=== PATIENT | male | born 1965 | race American Indian/Alaskan Native ===

== ENCOUNTER 2016-08-14 15:05 | Inpatient (IN) | payer MEDICAID, OTHER ==
[2016-08-14] MEDS ORDERED: Polyethylene Glycol 3350 Powder 17 GM Packet PO PRN (16:00)
[2016-08-14] MEDS ORDERED: Docusate Sodium 100 MG Cap PO PRN (16:00)
[2016-08-14] MEDS ORDERED: Acetaminophen 325 MG Tab PO PRN (16:00)
[2016-08-14] MEDS ORDERED: 50% Dextrose in Water 50 ML Syringe IVPUSH PRN (16:00)
[2016-08-14] MEDS ORDERED: Ondansetron 4 MG Tab.DIS PO PRN (16:00)
[2016-08-14] MEDS ORDERED: Sodium Chloride 0.65% Nasal Spray 45 ML Bottle NAS PRN (16:00)
--- NOTE | 2016-08-14 16:16 | PCM.HP ---
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 He had been dealing Right foot ulcer since February 2016 and was undergoing wound care. His ulcer became infected and started draining pus. He was seen by Aimee on who got a wound swab and also prescribed bactrim. Prior to that hospitalization, patient had fever, chills, night sweats and right leg pain for about 4 days prior to admission. Pus drainage from the foot worsened and patient was admitted for surgery on 08/06/16. He was started on IV vancomycin and IV zosyn. 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 Patient was then taken to the OR at that day and underwent right foot ulcer debridement and Incision and Drainage of Abscess area, partial right foot 3rd ray amputation (at the mid metatarsal shaft) and deep needle/trocar bone biopsy of the right 2nd and 4th metatarsal heads. Surgical findings were Necrotic bone and soft tissues of right foot. he was informed to have no weight bearing on the right foot today patient denies fever, chills, nausea, vomiting, any other symptoms except constipation. last blood work was done yesterday and shows, C. RP 2.3,ESR 95, BUN 8, creatinine 0.7, causing 8.7, albumin 3.20, potassium 4.1, sodium 139, AST 19, ALT 56, bilirubin total 2.3, GFR more than 60. chest x-ray from yesterday shows possible basal atelectasis - Related Data Allergies/Adverse Reactions: Allergies Allergy/AdvReac Type Severity Reaction Status Date / Time No Known Allergies Allergy Verified 08/14/16 16:04 Home Medications: Home Meds Aspirin 81 mg PO DAILY 11/25/14 [History] Hydrochlorothiazide 25 mg PO DAILY 11/25/14 [History] Lisinopril 40 mg PO DAILY 11/25/14 [History] Simvastatin [Zocor] 20 mg PO BEDTIME 11/25/14 [History] metFORMIN [Glucophage] 1,000 mg PO BID 11/25/14 [History] Amitriptyline [Elavil] 10 mg PO BEDTIME 03/30/16 [History] prednisoLONE Acetate [Pred Forte 1% Ophth Susp] 1 drop EYELF ASDIRECTED [History] Carvedilol 12.5 mg PO BID 08/14/16 [History] Past Medical History HEENT History: Reports: Cataract, Impaired vision Other HEENT History: supposed to wear glasses, but can't see far away with them Cardiovascular History: Reports: Arrhythmia, High cholesterol, Hypertension Other Cardiovascular History: has had heart pains, nothing is found Respiratory History: Reports: None Gastrointestinal History: Reports: None, Chronic constipation Genitourinary History: Reports: BPH Other Genitourinary History: has urgency, up at night to go to bathroom, then the stream is slow Musculoskeletal History: Reports: Back pain, chronic, Fracture, Other (see below ) Other Musculoskeletal History: RIGHT TIBIA; LUMBAR DEGENARATIVE DISC DISEASE; BULDGE OF LUMBAR DISC WITHOUT MYELOPATHY; LUMBAR RADICULPATHY Neurological History: Reports: Neuropathy, diabetic Psychiatric History: Reports: Depression, Mood swings Endocrine/Metabolic History: Reports: Diabetes, type II, Obesity/BMI 30+ Hematologic History: Reports: None Immunologic History: Reports: None Oncologic (Cancer) History: Reports: None Dermatologic History: Reports: Cellulitis, Other (see below) Other Dermatologic History: HX OF MRSA - Infectious Disease History Infectious Disease History: Reports: Mumps - Past Surgical History Head Surgeries/Procedures: Reports: None HEENT Surgical History: Reports: Cataract surgery, Tonsillectomy Cardiovascular Surgical History: Reports: None Respiratory Surgical History: Reports: None GI Surgical History: Reports: None Male Surgical History: Reports: None Endocrine Surgical History: Reports: None Neurological Surgical History: Reports: None Other Musculoskeletal Surgeries/Procedures:: knee surgury Oncologic Surgical History: Reports: None Dermatological Surgical History: Reports: None Social & Family History - Family History HEENT: Reports: None Respiratory: Reports: None GI: Reports: None : Reports: None Musculoskeletal: Reports: Arthritis Neurological: Reports: None Endocrine/Metabolic: Reports: Diabetes, type II Hematologic: Reports: None Immunologic: Reports: None Dermatologic: Reports: None - Tobacco Use Smoking Status *Q: Current Every Day Smoker Years of Tobacco use: 33 Packs/Tins Daily: 0.5 Second Hand Smoke Exposure: No - Caffeine Use Caffeine Use: Reports: None - Recreational Drug Use Recreational Drug Use: No Drug Use in Last 12 Months: No H&P Review of Systems - Review of Systems: Review Of Systems: See Below General: Reports: no symptoms HEENT: Reports: no symptoms Pulmonary: Reports: No Symptoms Cardiovascular: Reports: no symptoms Gastrointestinal: Reports: Constipation. Denies: Abdominal pain, Anorexia, Black stool, Bloody stool, Diarrhea, Decreased appetite, Difficulty swallowing, Distension, Hematochezia, Melena, Nausea, Vomiting Genitourinary: Reports: no symptoms Musculoskeletal: Reports: no symptoms Skin: Reports: no symptoms Psychiatric: Reports: no symptoms Neurological: Reports: No Symptoms Hematologic/Lymphatic: Reports: no symptoms Immunologic: Reports: no symptoms Exam - Exam Exam: See Below - Vital Signs Vital Signs: Last Vital Signs Temp 36.7 C 08/14/16 15:54 Pulse 71 08/14/16 15:54 Resp 20 08/14/16 15:54 BP 154/76 H 08/14/16 15:54 Pulse Ox 100 08/14/16 15:54 Weight: 125.736 kg - Exam General: alert, oriented, cooperative. No: mild distress, moderate distress, severe distress, sedated, lethargic, obtunded HEENT: Conjunctiva clear, EACs clear, EOMI, Hearing intact, Mucosa moist & pink , Nares patent, Normal nasal septum, Posterior pharynx clear, Pupils equal, Pupils reactive Neck: supple, trachea midline, full range of motion Lungs: Clear to auscultation, Normal respiratory effort. No: Decreased breath sounds, Crackles, Rales, Rhonchi, Rub, Stridor, Wheezing Cardiovascular: regular rate, regular rhythm Abdomen: normal bowel sounds, soft. No: organomegaly, peritoneal signs, distention, guarding, rigidity, rebound, tenderness, absent bowel sounds (Male) Exam: No hernia, Deferred Rectal (Males) Exam: Deferred Back Exam: normal inspection, full range of motion Extremities: edema (except appropriate postsurgical swelling in right foot), other (Right foot: vacc is in place. I don't appreciate drainage, fluctuation, induration, signs of infection). No: clubbing, cyanosis, calf tenderness Skin: warm, dry, intact Neurological: cranial nerves intact, reflexes equal bilateral Neuro Extensive - Mental Status: alert, oriented x3, normal mood/affect, normal cognition, memory intact Neuro Extensive - Motor, Sensory, Reflexes: CN II-XII intact, normal gait, normal reflexes Psychiatric: alert, normal affect, normal mood. No: suicidal ideation, homicidal ideation, hallucinations *Q Meaningful Use (ADM) - VTE *Q VTE Criteria *Q: - Stroke *Q Stroke Criteria *Q: - AMI *Q AMI Criteria *Q: Problem List Initiated/Reviewed/Updated: Yes Orders Last 24hrs: Active Orders 24 hr Category Date Time Status Patient Status [ADT] Routine ADT 08/14/16 16:00 Ordered Bedrest Bedside Commode [RC] ASDIRECTED Care 08/14/16 16:00 Ordered Blood Glucose Check, Bedside [RC] WITHMEALSANDBED Care 08/14/16 16:00 Ordered Communication Order [RC] PER UNIT ROUTINE Care 08/14/16 16:07 Ordered Communication Order [RC] PER UNIT ROUTINE Care 08/14/16 16:07 Ordered Diabetes Education [RC] Click To Edit Care 08/14/16 16:04 Ordered Height and Weight [RC] WEEKLY Care 08/14/16 16:02 Ordered Intake and Output [RC] ASDIRECTED Care 08/14/16 16:00 Ordered Notify Provider Laboratory Res [RC] ASDIRECTED Care 08/14/16 16:06 Ordered Oxygen Therapy [RC] PRN Care 08/14/16 16:00 Ordered Up to Chair [RC] ASDIRECTED Care 08/14/16 16:00 Ordered VTE/DVT Education [RC] PER UNIT ROUTINE Care 08/14/16 16:00 Ordered Vital Signs [RC] PER UNIT ROUTINE Care 08/14/16 16:00 Ordered OT Evaluation and Treatment [CONS] Routine Cons 08/14/16 16:00 Ordered PT Evaluation and Treatment [CONS] Routine Cons 08/14/16 16:00 Ordered Consistent Carbohydrate Diet [DIET] Diet 08/14/16 Breakfast Ordered Acetaminophen [Tylenol] Med 08/14/16 16:00 Ordered 650 mg PO Q4H PRN Acetaminophen/HYDROcodone [Clarita 325-10 MG] Med 08/14/16 16:00 Ordered 1 tab PO Q4H PRN Amitriptyline [Elavil] Med 08/14/16 21:00 Ordered 10 mg PO BEDTIME Aspirin Med 08/15/16 09:00 Ordered 81 mg PO DAILY Carvedilol [Carvedilol] Med 08/14/16 21:00 Ordered 12.5 mg PO BID Dextrose 50% in Water Med 08/14/16 16:00 Ordered 50 ml IVPUSH ONETIME PRN Docusate Sodium [Colace] Med 08/14/16 16:00 Ordered 100 mg PO BID PRN Enoxaparin [Lovenox] Med 08/15/16 09:00 Ordered 40 mg SUBCUT DAILY Hydrochlorothiazide Med 08/15/16 09:00 Ordered 25 mg PO DAILY Insulin Aspart [NovoLOG] Med 08/14/16 16:00 Ordered See Protocol SUBCUT ASDIRECTED Lisinopril [Lisinopril] Med 08/15/16 09:00 Ordered 40 mg PO DAILY Ondansetron [Zofran ODT] Med 08/14/16 16:00 Ordered 4 mg PO Q6H PRN Polyethylene Glycol 3350 [MiraLAX] Med 08/14/16 16:00 Ordered 17 gm PO DAILY PRN Simvastatin [Zocor] Med 08/14/16 21:00 Ordered 20 mg PO BEDTIME Sodium Chloride 0.65% [[place] Nasal [place]] Med 08/14/16 16:00 Ordered 1 ml MASON BID PRN Zolpidem [Ambien] Med 08/14/16 16:00 Ordered 5 mg PO BEDTIME PRN metFORMIN [Glucophage] Med 08/14/16 21:00 Ordered 1,000 mg PO BID Glucose Management Sub Q Reflex [OM.PC] Click To Edit Oth 08/14/16 16:00 Ordered May Take Own Home Medications [OM.PC] Routine Oth 08/14/16 16:06 Ordered Resuscitation Status Routine Resus Stat 08/14/16 16:00 Ordered Assessment/Plan Comment:: Right foot abscess and 3rd metatarsal head osteomyelitis. - S/p right foot ulcer debridement and Incision and Drainage of Abscess area, partial right foot 3rd ray amputation (at the mid metatarsal shaft) and deep needle/trocar bone biopsy of the right 2nd and 4th metatarsal heads. - Continue IV zosyn per infectious disease recommendation -continue to follow up with us Dr. Weaver from infectious disease -followup with podiatry -Tylenol and Clarita as needed for pain -No weightbearing on right foot -Consult physical therapy and special therapy possible atelectasis seen on chest x-ray from yesterday not symptomatic Incentive spirometer diabetes mellitus type 2 in obese Continue metformin sliding scale insulin essential benign hypertension resume his listener built, gargle, the chlorothiazide, aspirin History of hyperlipidemia Simvastatin chronic back pain with bilateral lumbar radiculopathy Continue his amitriptyline Tylenol and Clarita as needed patient is full code Lovenox for DVT prophylaxis
[2016-08-14] MEDS: Acetaminophen/HYDROcodone 325-10 MG Tab PO PRN (16:58)
[2016-08-14] MEDS: metFORMIN 500 MG Tab PO SCH (18:20)
[2016-08-14] MEDS: Carvedilol 6.25 MG Tab PO SCH (18:21)
[2016-08-14] MEDS: Insulin Aspart 100 Units/ML 3 ML Pen SUBCUT SCH ×2 (18:22→21:29)
[2016-08-14] MEDS: Piperacillin/Tazobactam 3.375 GM in Sodium Chloride 0.9% 100 ML IV SCH (18:42)
[2016-08-14] MEDS: Sodium Chloride 0.9% 10 ML Syringe FLUSH PRN (18:43)
[2016-08-14] MEDS: Simvastatin 10 MG Tab PO SCH (21:20)
[2016-08-14] MEDS: Amitriptyline 10 MG Tab PO SCH (21:21)
[2016-08-15] MEDS: Sodium Chloride 0.9% 10 ML Syringe FLUSH PRN (01:04)
[2016-08-15] MEDS: Piperacillin/Tazobactam 3.375 GM in Sodium Chloride 0.9% 100 ML IV SCH ×3 (01:20→18:16)
[2016-08-15] MEDS: Insulin Aspart 100 Units/ML 3 ML Pen SUBCUT SCH ×4 (07:59→23:05)
[2016-08-15] MEDS: Enoxaparin 40 MG/0.4 ML Syringe SUBCUT SCH (08:34)
[2016-08-15] MEDS: Carvedilol 6.25 MG Tab PO SCH ×2 (08:35→18:13)
[2016-08-15] MEDS: Aspirin 81 MG Tab.Chew PO SCH (08:35)
[2016-08-15] MEDS: Acetaminophen/HYDROcodone 325-10 MG Tab PO PRN ×3 (08:36→21:28)
[2016-08-15] MEDS: metFORMIN 500 MG Tab PO SCH ×2 (08:36→18:16)
[2016-08-15] MEDS: Lisinopril 20 MG Tab PO SCH (08:36)
[2016-08-15] MEDS: Hydrochlorothiazide 25 MG Tab PO SCH (08:36)
[2016-08-15] MEDS ORDERED: Alteplase 2 MG Vial IVPUSH ONE (16:15)
[2016-08-15] MEDS ORDERED: Water For Injection, Sterile 20 ML ONE (17:40)
[2016-08-15] MEDS: Amitriptyline 10 MG Tab PO SCH (21:28)
[2016-08-15] MEDS: Simvastatin 10 MG Tab PO SCH (21:28)
[2016-08-16] MEDS: Sodium Chloride 0.9% 10 ML Syringe FLUSH PRN (01:20)
[2016-08-16] MEDS: Piperacillin/Tazobactam 3.375 GM in Sodium Chloride 0.9% 100 ML IV SCH ×3 (01:20→17:19)
[2016-08-16] MEDS: Insulin Aspart 100 Units/ML 3 ML Pen SUBCUT SCH ×4 (08:17→20:49)
[2016-08-16] MEDS: Lisinopril 20 MG Tab PO SCH (09:24)
[2016-08-16] MEDS: Enoxaparin 40 MG/0.4 ML Syringe SUBCUT SCH (09:24)
[2016-08-16] MEDS: Aspirin 81 MG Tab.Chew PO SCH (09:25)
[2016-08-16] MEDS: Carvedilol 6.25 MG Tab PO SCH ×2 (09:25→17:19)
[2016-08-16] MEDS: metFORMIN 500 MG Tab PO SCH ×2 (09:25→17:18)
[2016-08-16] MEDS: Hydrochlorothiazide 25 MG Tab PO SCH (09:25)
[2016-08-16] MEDS: Acetaminophen/HYDROcodone 325-10 MG Tab PO PRN ×3 (12:39→20:54)
[2016-08-16] MEDS: Simvastatin 10 MG Tab PO SCH (20:43)
[2016-08-16] MEDS: Amitriptyline 10 MG Tab PO SCH (20:43)
[2016-08-17] MEDS: Piperacillin/Tazobactam 3.375 GM in Sodium Chloride 0.9% 100 ML IV SCH ×3 (01:08→17:57)
[2016-08-17] MEDS: Acetaminophen/HYDROcodone 325-10 MG Tab PO PRN ×3 (08:30→22:05)
[2016-08-17] MEDS: Lisinopril 20 MG Tab PO SCH (08:30)
[2016-08-17] MEDS: metFORMIN 500 MG Tab PO SCH ×2 (08:30→17:57)
[2016-08-17] MEDS: Hydrochlorothiazide 25 MG Tab PO SCH (08:31)
[2016-08-17] MEDS: Aspirin 81 MG Tab.Chew PO SCH (08:31)
[2016-08-17] MEDS: Insulin Aspart 100 Units/ML 3 ML Pen SUBCUT SCH ×4 (08:31→21:47)
[2016-08-17] MEDS: Enoxaparin 40 MG/0.4 ML Syringe SUBCUT SCH (08:31)
[2016-08-17] MEDS: Carvedilol 6.25 MG Tab PO SCH ×2 (08:31→17:57)
[2016-08-17] MEDS: Amitriptyline 10 MG Tab PO SCH (21:47)
[2016-08-17] MEDS: Simvastatin 10 MG Tab PO SCH (21:47)
[2016-08-18] MEDS: Piperacillin/Tazobactam 3.375 GM in Sodium Chloride 0.9% 100 ML IV SCH ×3 (01:13→17:40)
[2016-08-18] MEDS: Insulin Aspart 100 Units/ML 3 ML Pen SUBCUT SCH ×4 (08:01→21:43)
[2016-08-18] MEDS: Aspirin 81 MG Tab.Chew PO SCH (09:15)
[2016-08-18] MEDS: Carvedilol 6.25 MG Tab PO SCH ×2 (09:15→17:39)
[2016-08-18] MEDS: Hydrochlorothiazide 25 MG Tab PO SCH (09:16)
[2016-08-18] MEDS: metFORMIN 500 MG Tab PO SCH ×2 (09:16→17:39)
[2016-08-18] MEDS: Lisinopril 20 MG Tab PO SCH (09:16)
[2016-08-18] MEDS: Enoxaparin 40 MG/0.4 ML Syringe SUBCUT SCH (09:16)
[2016-08-18] MEDS: Acetaminophen/HYDROcodone 325-10 MG Tab PO PRN (09:17)
[2016-08-18] MEDS: Sodium Chloride 0.9% 10 ML Syringe FLUSH PRN (18:43)
[2016-08-18] MEDS: Amitriptyline 10 MG Tab PO SCH (21:43)
[2016-08-18] MEDS: Simvastatin 10 MG Tab PO SCH (21:43)
[2016-08-19] MEDS: Piperacillin/Tazobactam 3.375 GM in Sodium Chloride 0.9% 100 ML IV SCH ×3 (00:58→18:52)
[2016-08-19] MEDS: Insulin Aspart 100 Units/ML 3 ML Pen SUBCUT SCH ×4 (08:08→22:13)
[2016-08-19] MEDS: Carvedilol 6.25 MG Tab PO SCH ×2 (08:10→19:09)
[2016-08-19] MEDS: metFORMIN 500 MG Tab PO SCH ×2 (08:10→18:57)
[2016-08-19] MEDS: Hydrochlorothiazide 25 MG Tab PO SCH (09:06)
[2016-08-19] MEDS: Enoxaparin 40 MG/0.4 ML Syringe SUBCUT SCH (09:07)
[2016-08-19] MEDS: Aspirin 81 MG Tab.Chew PO SCH (09:07)
[2016-08-19] MEDS: Lisinopril 20 MG Tab PO SCH (09:07)
[2016-08-19] MEDS: Acetaminophen/HYDROcodone 325-10 MG Tab PO PRN ×2 (11:42→19:13)
[2016-08-19] MEDS: Sodium Chloride 0.9% 10 ML Syringe FLUSH PRN (18:52)
[2016-08-19] MEDS: Simvastatin 10 MG Tab PO SCH (22:14)
[2016-08-19] MEDS: Amitriptyline 10 MG Tab PO SCH (22:15)
[2016-08-20] MEDS: Piperacillin/Tazobactam 3.375 GM in Sodium Chloride 0.9% 100 ML IV SCH ×3 (01:50→17:28)
[2016-08-20] MEDS: Acetaminophen/HYDROcodone 325-10 MG Tab PO PRN ×2 (07:29→17:37)
[2016-08-20] MEDS: Insulin Aspart 100 Units/ML 3 ML Pen SUBCUT SCH ×4 (07:57→21:26)
[2016-08-20] MEDS: Hydrochlorothiazide 25 MG Tab PO SCH (09:54)
[2016-08-20] MEDS: metFORMIN 500 MG Tab PO SCH ×2 (09:55→17:37)
[2016-08-20] MEDS: Lisinopril 20 MG Tab PO SCH (09:55)
[2016-08-20] MEDS: Aspirin 81 MG Tab.Chew PO SCH (09:56)
[2016-08-20] MEDS: Carvedilol 6.25 MG Tab PO SCH ×2 (09:57→17:36)
[2016-08-20] MEDS: Enoxaparin 40 MG/0.4 ML Syringe SUBCUT SCH (09:58)
[2016-08-20] MEDS: Sodium Chloride 0.9% 10 ML Syringe FLUSH PRN ×2 (10:10→17:28)
[2016-08-20] MEDS ORDERED: Alteplase 2 MG Vial IVPUSH ONE (13:54)
[2016-08-20] MEDS: Simvastatin 10 MG Tab PO SCH (21:25)
[2016-08-20] MEDS: Amitriptyline 10 MG Tab PO SCH (21:25)
[2016-08-21] MEDS: Piperacillin/Tazobactam 3.375 GM in Sodium Chloride 0.9% 100 ML IV SCH ×3 (01:05→17:40)
[2016-08-21] MEDS: Sodium Chloride 0.9% 10 ML Syringe FLUSH PRN ×2 (01:06→21:15)
[2016-08-21] MEDS: Insulin Aspart 100 Units/ML 3 ML Pen SUBCUT SCH ×4 (06:17→21:45)
[2016-08-21] MEDS: Acetaminophen/HYDROcodone 325-10 MG Tab PO PRN ×2 (06:35→18:08)
[2016-08-21] MEDS: Enoxaparin 40 MG/0.4 ML Syringe SUBCUT SCH (08:59)
[2016-08-21] MEDS: Hydrochlorothiazide 25 MG Tab PO SCH (09:37)
[2016-08-21] MEDS: Lisinopril 20 MG Tab PO SCH (09:37)
[2016-08-21] MEDS: metFORMIN 500 MG Tab PO SCH ×2 (09:37→18:02)
[2016-08-21] MEDS: Aspirin 81 MG Tab.Chew PO SCH (09:37)
[2016-08-21] MEDS: Carvedilol 6.25 MG Tab PO SCH ×2 (09:37→18:02)
[2016-08-21] MEDS: Amitriptyline 10 MG Tab PO SCH (21:14)
[2016-08-21] MEDS: Simvastatin 10 MG Tab PO SCH (21:15)
[2016-08-22] MEDS: Piperacillin/Tazobactam 3.375 GM in Sodium Chloride 0.9% 100 ML IV SCH ×3 (01:17→18:07)
[2016-08-22] MEDS: Sodium Chloride 0.9% 10 ML Syringe FLUSH PRN ×3 (01:18→21:07)
[2016-08-22] MEDS: Insulin Aspart 100 Units/ML 3 ML Pen SUBCUT SCH ×4 (09:52→21:06)
[2016-08-22] MEDS: Aspirin 81 MG Tab.Chew PO SCH (09:52)
[2016-08-22] MEDS: Carvedilol 6.25 MG Tab PO SCH ×2 (09:53→17:58)
[2016-08-22] MEDS: Hydrochlorothiazide 25 MG Tab PO SCH (09:56)
[2016-08-22] MEDS: Enoxaparin 40 MG/0.4 ML Syringe SUBCUT SCH (09:57)
[2016-08-22] MEDS: metFORMIN 500 MG Tab PO SCH ×2 (09:57→17:58)
[2016-08-22] MEDS: Lisinopril 20 MG Tab PO SCH (09:57)
[2016-08-22] MEDS: Simvastatin 10 MG Tab PO SCH (21:05)
[2016-08-22] MEDS: Amitriptyline 10 MG Tab PO SCH (21:05)
[2016-08-23] MEDS: Piperacillin/Tazobactam 3.375 GM in Sodium Chloride 0.9% 100 ML IV SCH ×3 (01:04→17:33)
[2016-08-23] MEDS: Sodium Chloride 0.9% 10 ML Syringe FLUSH PRN ×3 (01:05→11:40)
[2016-08-23] MEDS: Insulin Aspart 100 Units/ML 3 ML Pen SUBCUT SCH ×4 (09:33→22:03)
[2016-08-23] MEDS: metFORMIN 500 MG Tab PO SCH ×2 (10:31→17:33)
[2016-08-23] MEDS: Carvedilol 6.25 MG Tab PO SCH ×2 (10:32→17:33)
[2016-08-23] MEDS: Aspirin 81 MG Tab.Chew PO SCH (10:32)
[2016-08-23] MEDS: Lisinopril 20 MG Tab PO SCH (10:32)
[2016-08-23] MEDS: Hydrochlorothiazide 25 MG Tab PO SCH (10:32)
[2016-08-23] MEDS: Enoxaparin 40 MG/0.4 ML Syringe SUBCUT SCH (10:33)
[2016-08-23] MEDS: Acetaminophen/HYDROcodone 325-10 MG Tab PO PRN ×2 (12:40→17:46)
[2016-08-23] MEDS: Simvastatin 10 MG Tab PO SCH (20:32)
[2016-08-23] MEDS: Amitriptyline 10 MG Tab PO SCH (20:33)
[2016-08-23] MEDS: Zolpidem 5 MG Tab PO PRN (21:41)
[2016-08-24] MEDS: Piperacillin/Tazobactam 3.375 GM in Sodium Chloride 0.9% 100 ML IV SCH ×3 (01:31→17:33)
[2016-08-24] MEDS: Insulin Aspart 100 Units/ML 3 ML Pen SUBCUT SCH ×4 (07:52→21:12)
[2016-08-24] MEDS: Carvedilol 6.25 MG Tab PO SCH ×2 (07:55→17:37)
[2016-08-24] MEDS: Lisinopril 20 MG Tab PO SCH ×2 (07:57→13:15)
[2016-08-24] MEDS: metFORMIN 500 MG Tab PO SCH ×2 (07:57→17:36)
[2016-08-24] MEDS: Aspirin 81 MG Tab.Chew PO SCH ×2 (07:57→13:14)
[2016-08-24] MEDS: Enoxaparin 40 MG/0.4 ML Syringe SUBCUT SCH (07:59)
[2016-08-24] MEDS: Hydrochlorothiazide 25 MG Tab PO SCH (08:04)
[2016-08-24] MEDS: Acetaminophen/HYDROcodone 325-10 MG Tab PO PRN ×2 (08:04→20:36)
[2016-08-24] MEDS: Simvastatin 10 MG Tab PO SCH (20:37)
[2016-08-24] MEDS: Amitriptyline 10 MG Tab PO SCH (20:38)
[2016-08-24] MEDS: Zolpidem 5 MG Tab PO PRN (22:22)
[2016-08-25] MEDS: Piperacillin/Tazobactam 3.375 GM in Sodium Chloride 0.9% 100 ML IV SCH ×3 (01:07→18:03)
[2016-08-25] MEDS: Acetaminophen/HYDROcodone 325-10 MG Tab PO PRN ×3 (07:13→22:15)
[2016-08-25] MEDS: Insulin Aspart 100 Units/ML 3 ML Pen SUBCUT SCH ×4 (10:28→22:03)
[2016-08-25] MEDS: Carvedilol 6.25 MG Tab PO SCH ×2 (10:40→17:26)
[2016-08-25] MEDS: metFORMIN 500 MG Tab PO SCH ×2 (10:41→17:26)
[2016-08-25] MEDS: Aspirin 81 MG Tab.Chew PO SCH (17:26)
[2016-08-25] MEDS: Lisinopril 20 MG Tab PO SCH (17:27)
[2016-08-25] MEDS: Hydrochlorothiazide 25 MG Tab PO SCH (17:27)
[2016-08-25] MEDS: Enoxaparin 40 MG/0.4 ML Syringe SUBCUT SCH (18:00)
[2016-08-25] MEDS: Sodium Chloride 0.9% 10 ML Syringe FLUSH PRN (18:01)
[2016-08-25] MEDS: Zolpidem 5 MG Tab PO PRN (22:01)
[2016-08-25] MEDS: Amitriptyline 10 MG Tab PO SCH (22:01)
[2016-08-25] MEDS: Simvastatin 10 MG Tab PO SCH (22:01)
[2016-08-26] MEDS: Sodium Chloride 0.9% 10 ML Syringe FLUSH PRN ×2 (00:49→01:31)
[2016-08-26] MEDS: Piperacillin/Tazobactam 3.375 GM in Sodium Chloride 0.9% 100 ML IV SCH ×3 (00:49→17:42)
[2016-08-26] MEDS: Insulin Aspart 100 Units/ML 3 ML Pen SUBCUT SCH ×4 (08:48→20:54)
[2016-08-26] MEDS: Enoxaparin 40 MG/0.4 ML Syringe SUBCUT SCH (08:49)
[2016-08-26] MEDS: Hydrochlorothiazide 25 MG Tab PO SCH (08:49)
[2016-08-26] MEDS: metFORMIN 500 MG Tab PO SCH ×2 (08:49→17:39)
[2016-08-26] MEDS: Aspirin 81 MG Tab.Chew PO SCH (08:50)
[2016-08-26] MEDS: Lisinopril 20 MG Tab PO SCH (08:50)
[2016-08-26] MEDS: Carvedilol 6.25 MG Tab PO SCH ×2 (08:50→17:38)
--- NOTE | 2016-08-26 10:43 | PN ---
DATE: 08/26/2016 SUBJECTIVE: Mr. Oswaldo Moeller is a 50-year-old male with history of diabetes mellitus type 2, hypertension, and dyslipidemia. The patient was transferred to [place] from [facility] for intravenous antibiotics. He was found to have right foot abscess and osteomyelitis of the third metatarsal, right foot. He was seen by Infectious Disease and started on intravenous antibiotics. Today, the patient have no new complaints. Denies significant pain. He has a wound VAC applied to the right foot. No fever, chills, or rigors. REVIEW OF SYSTEMS: Cardiac, respiratory, gastrointestinal, constitutional, and neurologic reviewed, no other pertinent findings except as noted above. OBJECTIVE: General: The patient is alert, oriented to place, time, and person. Head: Atraumatic and normocephalic. Ear, Nose, and Throat: Unremarkable. Chest: Clear to auscultation. CVS: Regular rate and rhythm. Abdomen: Soft and nontender. Extremities: He has a wound VAC applied to the right foot. ASSESSMENT: 1. Right foot abscess. The patient underwent drainage of abscess at [facility] in [place]. 2. Osteomyelitis of the right foot. The patient underwent right partial toe amputation (surgery). 3. Diabetes mellitus. He has been on oral hypoglycemic agent. 4. Dyslipidemia, on simvastatin. 5. Chronic low back pain and bilateral lumbar radiculopathy. PLAN: 1. Continue on intravenous antibiotics, Zosyn. 2. Monitor blood sugars. 3. Continue wound VAC. 4. The patient has appointment with Infectious Disease in 2 days. [facility] /[id number]
[2016-08-26] MEDS: Amitriptyline 10 MG Tab PO SCH (20:50)
[2016-08-26] MEDS: Zolpidem 5 MG Tab PO PRN (20:50)
[2016-08-26] MEDS: Simvastatin 10 MG Tab PO SCH (20:50)
[2016-08-27] MEDS: Piperacillin/Tazobactam 3.375 GM in Sodium Chloride 0.9% 100 ML IV SCH ×3 (00:52→18:27)
[2016-08-27] MEDS: Insulin Aspart 100 Units/ML 3 ML Pen SUBCUT SCH ×4 (08:24→22:10)
[2016-08-27] MEDS: Hydrochlorothiazide 25 MG Tab PO SCH (10:19)
[2016-08-27] MEDS: Enoxaparin 40 MG/0.4 ML Syringe SUBCUT SCH (10:20)
[2016-08-27] MEDS: Aspirin 81 MG Tab.Chew PO SCH (10:20)
[2016-08-27] MEDS: Lisinopril 20 MG Tab PO SCH (10:20)
[2016-08-27] MEDS: metFORMIN 500 MG Tab PO SCH ×2 (10:25→18:25)
[2016-08-27] MEDS: Carvedilol 6.25 MG Tab PO SCH ×2 (10:25→18:29)
[2016-08-27] MEDS: Simvastatin 10 MG Tab PO SCH (22:04)
[2016-08-27] MEDS: Amitriptyline 10 MG Tab PO SCH (22:04)
[2016-08-28] MEDS: Sodium Chloride 0.9% 10 ML Syringe FLUSH PRN ×4 (01:23→17:10)
[2016-08-28] MEDS: Piperacillin/Tazobactam 3.375 GM in Sodium Chloride 0.9% 100 ML IV SCH ×3 (01:24→17:09)
[2016-08-28] MEDS: Insulin Aspart 100 Units/ML 3 ML Pen SUBCUT SCH ×4 (08:20→21:42)
--- NOTE | 2016-08-28 08:51 | PN ---
DATE: 08/27/2016 Mr. Moeller is a 50-year-old gentleman, who is in swing bed. He had a diabetic foot infection and is status post amputation of the 3rd metatarsal ray. Today, there were multiple discussions held with him and among the staff. He does not want to stay for further treatment. He currently is receiving IV Zosyn 3 times a day and has a PICC line in place. The swing bed coordinator did speak with the nurse for Dr. Smalls at the [facility] at [place]. Mr. Moeller is scheduled to see Infectious Disease by telemedicine tomorrow and he will keep that appointment. If he does leave AMA, the plan is to discontinue the PICC line. The wound VAC will also have to be discontinued and arrangements will be made for him to have dressings done at the [facility]. We are not sure at this time what we will be doing regarding the IV antibiotics. If he does leave, we cannot be responsible for the PICC line and he will need to have a peripheral line placed if he comes in as an outpatient. One other possibility will be that Infectious Disease could change his treatment to oral antibiotics. His C-reactive protein is now normal but sed rate remains elevated at 70 mm/minute. Lab work was done today in advance of tomorrow's appointment with Infectious Disease including CBC, sed rate, creatinine with GFR, ALT and C-reactive protein. Results were sent to Infectious Disease. [facility] /[id number] [place]
[2016-08-28] MEDS: Lisinopril 20 MG Tab PO SCH (09:41)
[2016-08-28] MEDS: Hydrochlorothiazide 25 MG Tab PO SCH (09:41)
[2016-08-28] MEDS: Aspirin 81 MG Tab.Chew PO SCH (09:41)
[2016-08-28] MEDS: Carvedilol 6.25 MG Tab PO SCH ×2 (09:42→17:12)
[2016-08-28] MEDS: metFORMIN 500 MG Tab PO SCH ×2 (09:42→17:12)
[2016-08-28] MEDS: Enoxaparin 40 MG/0.4 ML Syringe SUBCUT SCH (09:43)
[2016-08-28] MEDS: Amitriptyline 10 MG Tab PO SCH (21:41)
[2016-08-28] MEDS: Simvastatin 10 MG Tab PO SCH (21:41)
[2016-08-28] MEDS: Zolpidem 5 MG Tab PO PRN (21:41)
[2016-08-29] MEDS: Piperacillin/Tazobactam 3.375 GM in Sodium Chloride 0.9% 100 ML IV SCH ×3 (01:20→17:26)
[2016-08-29] MEDS: Insulin Aspart 100 Units/ML 3 ML Pen SUBCUT SCH ×4 (08:10→20:44)
[2016-08-29] MEDS: Hydrochlorothiazide 25 MG Tab PO SCH (09:02)
[2016-08-29] MEDS: Aspirin 81 MG Tab.Chew PO SCH (09:02)
[2016-08-29] MEDS: Lisinopril 20 MG Tab PO SCH (09:02)
[2016-08-29] MEDS: Carvedilol 6.25 MG Tab PO SCH ×2 (09:03→17:28)
[2016-08-29] MEDS: Enoxaparin 40 MG/0.4 ML Syringe SUBCUT SCH (09:04)
[2016-08-29] MEDS: metFORMIN 500 MG Tab PO SCH ×2 (09:04→17:29)
[2016-08-29] MEDS: Sodium Chloride 0.9% 10 ML Syringe FLUSH PRN ×2 (09:05→17:26)
[2016-08-29] MEDS: Simvastatin 10 MG Tab PO SCH (20:45)
[2016-08-29] MEDS: Zolpidem 5 MG Tab PO PRN (20:45)
[2016-08-29] MEDS: Amitriptyline 10 MG Tab PO SCH (20:45)
[2016-08-30] MEDS: Piperacillin/Tazobactam 3.375 GM in Sodium Chloride 0.9% 100 ML IV SCH ×3 (01:03→17:43)
[2016-08-30] MEDS: Sodium Chloride 0.9% 10 ML Syringe FLUSH PRN ×3 (01:05→17:43)
[2016-08-30] MEDS: Insulin Aspart 100 Units/ML 3 ML Pen SUBCUT SCH ×4 (08:17→21:13)
[2016-08-30] MEDS: Enoxaparin 40 MG/0.4 ML Syringe SUBCUT SCH (08:18)
[2016-08-30] MEDS: Carvedilol 6.25 MG Tab PO SCH ×2 (08:19→17:32)
[2016-08-30] MEDS: Lisinopril 20 MG Tab PO SCH (08:19)
[2016-08-30] MEDS: Hydrochlorothiazide 25 MG Tab PO SCH (08:20)
[2016-08-30] MEDS: Aspirin 81 MG Tab.Chew PO SCH (08:20)
[2016-08-30] MEDS: metFORMIN 500 MG Tab PO SCH ×2 (08:20→17:31)
[2016-08-30] MEDS: Zolpidem 5 MG Tab PO PRN (20:06)
[2016-08-30] MEDS: Amitriptyline 10 MG Tab PO SCH (20:06)
[2016-08-30] MEDS: Simvastatin 10 MG Tab PO SCH (20:07)
[2016-08-31] MEDS: Piperacillin/Tazobactam 3.375 GM in Sodium Chloride 0.9% 100 ML IV SCH ×3 (01:39→17:34)
[2016-08-31] MEDS: Sodium Chloride 0.9% 10 ML Syringe FLUSH PRN (01:40)
[2016-08-31] MEDS: Insulin Aspart 100 Units/ML 3 ML Pen SUBCUT SCH ×4 (08:20→21:33)
[2016-08-31] MEDS: Carvedilol 6.25 MG Tab PO SCH ×2 (09:10→17:32)
[2016-08-31] MEDS: Enoxaparin 40 MG/0.4 ML Syringe SUBCUT SCH (09:10)
[2016-08-31] MEDS: Hydrochlorothiazide 25 MG Tab PO SCH (09:11)
[2016-08-31] MEDS: Aspirin 81 MG Tab.Chew PO SCH (09:11)
[2016-08-31] MEDS: metFORMIN 500 MG Tab PO SCH ×2 (09:11→17:32)
[2016-08-31] MEDS: Lisinopril 20 MG Tab PO SCH (09:11)
[2016-08-31] MEDS: Simvastatin 10 MG Tab PO SCH (21:27)
[2016-08-31] MEDS: Amitriptyline 10 MG Tab PO SCH (21:27)
[2016-08-31] MEDS: Zolpidem 5 MG Tab PO PRN (21:33)
[2016-09-01] MEDS: Piperacillin/Tazobactam 3.375 GM in Sodium Chloride 0.9% 100 ML IV SCH ×3 (00:37→18:07)
[2016-09-01] MEDS: Sodium Chloride 0.9% 10 ML Syringe FLUSH PRN ×2 (00:38→19:02)
[2016-09-01] MEDS: Carvedilol 6.25 MG Tab PO SCH ×2 (08:22→18:07)
[2016-09-01] MEDS: metFORMIN 500 MG Tab PO SCH ×2 (08:22→18:10)
[2016-09-01] MEDS: Aspirin 81 MG Tab.Chew PO SCH (08:22)
[2016-09-01] MEDS: Lisinopril 20 MG Tab PO SCH (08:22)
[2016-09-01] MEDS: Hydrochlorothiazide 25 MG Tab PO SCH (08:23)
[2016-09-01] MEDS: Enoxaparin 40 MG/0.4 ML Syringe SUBCUT SCH (08:23)
[2016-09-01] MEDS: Insulin Aspart 100 Units/ML 3 ML Pen SUBCUT SCH ×4 (08:23→20:52)
[2016-09-01] MEDS: Amitriptyline 10 MG Tab PO SCH (20:32)
[2016-09-01] MEDS: Simvastatin 10 MG Tab PO SCH (20:34)
[2016-09-01] MEDS: Zolpidem 5 MG Tab PO PRN (20:54)
[2016-09-02] MEDS: Piperacillin/Tazobactam 3.375 GM in Sodium Chloride 0.9% 100 ML IV SCH ×3 (00:56→17:46)
[2016-09-02] MEDS: Sodium Chloride 0.9% 10 ML Syringe FLUSH PRN ×3 (00:56→17:47)
[2016-09-02] MEDS: Lisinopril 20 MG Tab PO SCH (08:08)
[2016-09-02] MEDS: Aspirin 81 MG Tab.Chew PO SCH (08:08)
[2016-09-02] MEDS: Hydrochlorothiazide 25 MG Tab PO SCH (08:08)
[2016-09-02] MEDS: metFORMIN 500 MG Tab PO SCH ×2 (08:08→17:47)
[2016-09-02] MEDS: Insulin Aspart 100 Units/ML 3 ML Pen SUBCUT SCH ×4 (08:09→20:49)
[2016-09-02] MEDS: Carvedilol 6.25 MG Tab PO SCH ×2 (08:09→17:54)
[2016-09-02] MEDS: Enoxaparin 40 MG/0.4 ML Syringe SUBCUT SCH (08:10)
[2016-09-02] MEDS: Acetaminophen/HYDROcodone 325-10 MG Tab PO PRN (19:59)
[2016-09-02] MEDS: Zolpidem 5 MG Tab PO PRN (20:31)
[2016-09-02] MEDS: Simvastatin 10 MG Tab PO SCH (20:32)
[2016-09-02] MEDS: Amitriptyline 10 MG Tab PO SCH (20:32)
[2016-09-03] MEDS: Piperacillin/Tazobactam 3.375 GM in Sodium Chloride 0.9% 100 ML IV SCH ×3 (00:44→17:59)
[2016-09-03] MEDS: Aspirin 81 MG Tab.Chew PO SCH (08:17)
[2016-09-03] MEDS: Carvedilol 6.25 MG Tab PO SCH ×2 (08:17→17:55)
[2016-09-03] MEDS: Lisinopril 20 MG Tab PO SCH (08:17)
[2016-09-03] MEDS: Hydrochlorothiazide 25 MG Tab PO SCH (08:18)
[2016-09-03] MEDS: metFORMIN 500 MG Tab PO SCH ×2 (08:18→17:55)
[2016-09-03] MEDS: Enoxaparin 40 MG/0.4 ML Syringe SUBCUT SCH (08:20)
[2016-09-03] MEDS: Insulin Aspart 100 Units/ML 3 ML Pen SUBCUT SCH ×4 (08:25→21:32)
[2016-09-03] MEDS: Sodium Chloride 0.9% 10 ML Syringe FLUSH PRN (09:09)
--- NOTE | 2016-09-03 10:02 | PCM.DCSUM1 ---
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 He had been dealing Right foot ulcer since February 2016 and was undergoing wound care. His ulcer became infected and started draining pus. He was seen by Lo on who got a wound swab and also prescribed bactrim. Prior to that hospitalization, patient had fever, chills, night sweats and right leg pain for about 4 days prior to admission. Pus drainage from the foot worsened and patient was admitted for surgery on 08/06/16. He was started on IV vancomycin and IV zosyn. 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 Patient was then taken to the OR at that day and underwent right foot ulcer debridement and Incision and Drainage of Abscess area, partial right foot 3rd ray amputation (at the mid metatarsal shaft) and deep needle/trocar bone biopsy of the right 2nd and 4th metatarsal heads. Surgical findings were Necrotic bone and soft tissues of right foot. he was admitted to swing bed on08/14/16. he has been getting Zosyn every 8 hours and seen in infectious disease in [place]. he is on no weight bearing on the right foot. patient had reproducible right inner upper arm pain. It seems from his PICC line. No signs of infection of his PICC line are appreciated. on admission and upon discharge patient denies fever, chills, nausea, vomiting, any other symptoms except constipation which improved. admission labs: CRP 2.3,ESR 95, BUN 8, creatinine 0.7, causing 8.7, albumin 3.20, potassium 4.1, sodium 139, AST 19, ALT 56, bilirubin total 2.3, GFR more than 60. chest x-ray from yesterday shows possible basal atelectasis. today his CRP is 0.7. Hemoglobin 11.5. WBC 8.7. of 0.8. patient is having social issue at home so he was leaving the facility for long time without his wound VAC against our advice. He was also getting the dressings on his foot longer than supposed. he was aware of the right medical advice but he verbalized and demonstrated understanding his medical condition and the importance of following medical advice but he opted willingly to take care of of his family issue rather than being compliant with the medical advice. I saw and examined the patient today. He informed me that he will go to this appointment in [place] tomorrow morning and he will not come back to the facility. He said n he will discuss with his infectious disease specialist the options of home therapy and he was affirm that he will not come back to this facility (swing[facility]) because his social issue at home. I explained to him that it's important to follow medical advice and being compliant with his treatment for his infected foot. I explained to him that inappropriate treatment and being noncompliant with his treatment can cause the infection to spread to the blood and can cause . Patient verbalized understanding and wanted to take his own risk. for his diabetes he has been requiring 0-2 units of insulin before meals. his blood glucose for the last 48 hours ranges between 183 to 228, however he has not been in the facility enough to do comprehensive blood check and treatment. I prescribed him glipizide ER 2.5 mg daily. He was advised to check his blood sugar before each meal and see his private care provider in 3-5 days and take his blood glucose readings with him to the appointment. patient will be discharged tomorrow at 6:30 AM per his request. 33 minutes was spent on discharging the patient addendum: on 09/04/16: Patient history and physical exam did not change and he patient continued to make the same decision - Discharge Data Discharge Date: 09/04/16 Discharge Disposition: Home, Self-Care 01 Condition: Good - Discharge Diagnosis/Problem(s) (1) Right foot infection SNOMED Code(s): 246644691 ICD Code: L08.9 - LOCAL INFECTION OF THE SKIN AND SUBCUTANEOUS TISSUE, UNSP Status: Chronic (2) Status post right foot surgery SNOMED Code(s): 723204826, 65143558, 160599429 ICD Code: Z98.890 - OTHER SPECIFIED POSTPROCEDURAL STATES Status: Acute (3) Diabetes mellitus type 2 in obese SNOMED Code(s): 46759226 ICD Code: E11.9 - TYPE 2 DIABETES MELLITUS WITHOUT COMPLICATIONS; E66.9 - OBESITY, UNSPECIFIED Status: Chronic (4) Hyperlipidemia SNOMED Code(s): 85982826 ICD Code: E78.5 - HYPERLIPIDEMIA, UNSPECIFIED Status: Chronic (5) Chronic back pain SNOMED Code(s): 325354215 ICD Code: M54.9 - DORSALGIA, UNSPECIFIED; G89.29 - OTHER CHRONIC PAIN Status: Chronic - Patient Summary/Data Operative Procedure(s) Performed: Cataract extraction with intraocular lens implant and Malyugin ring, left eye Consults: Consultations 08/14/16 16:00 OT Evaluation and Treatment [CONS] Routine PT Evaluation and Treatment [CONS] Routine - Patient Instructions Diet: Heart Healthy Diet, Diabetic Diet Activity: As Tolerated (but no weight bearing on right foot) Driving: Do Not Drive Showering/Bathing: May Shower Notify Provider of: Fever, Swelling and Redness, Drainage - Discharge Plan Prescriptions/Med Rec: glipiZIDE [Glucotrol XL] 2.5 mg PO DAILY #30 tab.er Home Medications: Home Meds Aspirin 81 mg PO DAILY 11/25/14 [History] Hydrochlorothiazide 25 mg PO DAILY 11/25/14 [History] Lisinopril 40 mg PO DAILY 11/25/14 [History] Simvastatin [Zocor] 20 mg PO BEDTIME 11/25/14 [History] metFORMIN [Glucophage] 1,000 mg PO BID 11/25/14 [History] Amitriptyline [Elavil] 10 mg PO BEDTIME 03/30/16 [History] Carvedilol 12.5 mg PO BID 08/14/16 [History] Piperacillin/Tazobactam [Zosyn] 3.375 gm IV Q8H 08/14/16 [History] glipiZIDE [Glucotrol XL] 2.5 mg PO DAILY #30 tab.er 09/03/16 [Rx] Patient Handouts: Bone and Joint Infections, Adult, Wound Infection, Easy-to- Read, Glipizide Extended-release tablets - Review of Systems General: Reports: No Symptoms HEENT: Reports: no symptoms Pulmonary: Reports: no symptoms Cardiovascular: Reports: No Symptoms Gastrointestinal: Reports: No symptoms Genitourinary: Reports: no symptoms Musculoskeletal: Reports: foot pain. Denies: neck pain, hand pain, joint swelling Skin: Denies: cyanosis, jaundice, mottled, pallor, diaphoresis, dryness, bruising, pruritis, rash Neurological: Reports: No Symptoms Psychiatric: Reports: no symptoms - Patient Data Vitals - Most Recent: Last Vital Signs Temp 36.6 C 09/02/16 20:00 Pulse 65 09/03/16 08:17 Resp 18 09/02/16 20:00 BP 121/60 09/03/16 08:17 Pulse Ox 100 09/02/16 20:00 Weight - Most Recent: 123.434 kg I&O - Last 24 hours: Intake & Output 09/02/16 09/03/16 09/03/16 22:59 06:59 14:59 Intake Total 94 Balance 94 Lab Results - Last 24 hrs: Laboratory Results - last 24 hr 09/02/16 09/02/16 09/02/16 Range/Units 07:36 17:37 20:37 WBC (5.0-10.0) 10^3/uL RBC (4.6-6.2) 10^6/uL Hgb (14.0-18.0) g/dL Hct (40.0-54.0) % MCV (80-100) fL MCH (27.0-34.0) pg MCHC (33.0-35.0) g/dL Plt Count (150-450) 10^3/uL Neut % (Auto) (42.2-75.2) % Lymph % (Auto) (20.5-50.1) % [place] % (Auto) (2-8) % Eos % (Auto) (1.0-3.0) % Baso % (Auto) (0.0-1.0) % ESR (0-15) mm/hr Creatinine (0.6-1.3) mg/dL Est Cr Clr Drug Dosing mL/min Estimated GFR (MDRD) POC Glucose 183 H 228 H 208 H (70-105) mg/dl ALT (10-60) IU/L C-Reactive Protein (0.0-1.3) mg/dL 09/03/16 09/03/16 09/03/16 Range/Units 06:15 06:15 06:15 WBC 8.7 (5.0-10.0) 10^3/uL RBC 3.98 L (4.6-6.2) 10^6/uL Hgb 11.5 L (14.0-18.0) g/dL Hct 35.4 L (40.0-54.0) % MCV 88.9 (80-100) fL MCH 28.9 (27.0-34.0) pg MCHC 32.5 L (33.0-35.0) g/dL Plt Count 240 (150-450) 10^3/uL Neut % (Auto) 54.5 (42.2-75.2) % Lymph % (Auto) 25.5 (20.5-50.1) % [place] % (Auto) 12.7 H (2-8) % Eos % (Auto) 7.1 H (1.0-3.0) % Baso % (Auto) 0.2 (0.0-1.0) % ESR 69 H (0-15) mm/hr Creatinine 0.8 (0.6-1.3) mg/dL Est Cr Clr Drug Dosing 129.10 mL/min Estimated GFR (MDRD) > 60 POC Glucose (70-105) mg/dl ALT 17 (10-60) IU/L C-Reactive Protein 0.7 (0.0-1.3) mg/dL // Range/Units 07:38 WBC (5.0-10.0) 10^3/uL RBC (4.6-6.2) 10^6/uL Hgb (14.0-18.0) g/dL Hct (40.0-54.0) % MCV (80-100) fL MCH (27.0-34.0) pg MCHC (33.0-35.0) g/dL Plt Count (150-450) 10^3/uL Neut % (Auto) (42.2-75.2) % Lymph % (Auto) (20.5-50.1) % [place] % (Auto) (2-8) % Eos % (Auto) (1.0-3.0) % Baso % (Auto) (0.0-1.0) % ESR (0-15) mm/hr Creatinine (0.6-1.3) mg/dL Est Cr Clr Drug Dosing mL/min Estimated GFR (MDRD) POC Glucose 176 H (70-105) mg/dl ALT (10-60) IU/L C-Reactive Protein (0.0-1.3) mg/dL Med Orders - Current: Current Medications Acetaminophen (Tylenol) 650 mg PO Q4H PRN PRN Reason: Pain (Mild 1-3)/fever Last Admin: 08/23/16 10:30 Dose: 650 mg Acetaminophen/Hydrocodone Bitart ([place] 325-10 Mg) 1 tab PO Q4H PRN PRN Reason: Pain (moderate 4-6) Last Admin: 09/02/16 19:59 Dose: 1 tab Amitriptyline HCl (Elavil) 10 mg PO BEDTIME [facility] Last Admin: 09/02/16 20:32 Dose: 10 mg Aspirin (Aspirin) 81 mg PO DAILY [facility] Last Admin: 09/03/16 08:17 Dose: 81 mg Carvedilol (Coreg) 12.5 mg PO BIDMEALS [facility] Last Admin: 09/03/16 08:17 Dose: 12.5 mg Dextrose/Water (Dextrose 50% In Water) 50 ml IVPUSH ONETIME PRN PRN Reason: Hypoglycemia Docusate Sodium (Colace) 100 mg PO BID PRN PRN Reason: Constipation Last Admin: 08/23/16 10:48 Dose: 100 mg Enoxaparin Sodium (Lovenox) 40 mg SUBCUT DAILY [facility] Last Admin: 09/03/16 08:20 Dose: 40 mg Hydrochlorothiazide (Hydrochlorothiazide) 25 mg PO DAILY [facility] Last Admin: 09/03/16 08:18 Dose: 25 mg Piperacillin Sod/Tazobactam (Sod 3.375 gm/ Sodium Chloride) 100 mls @ 200 mls/ hr IV Q8H [facility] Last Admin: 09/03/16 08:28 Dose: 200 mls/hr Insulin Aspart (Novolog) 0 unit SUBCUT ACBED [facility] PRN Reason: Protocol Last Admin: 09/03/16 08:25 Dose: 1 units Lisinopril (Prinivil) 40 mg PO DAILY [facility] Last Admin: 09/03/16 08:17 Dose: 40 mg Metformin HCl (Glucophage) 1,000 mg PO BIDMEALS [facility] Last Admin: 09/03/16 08:18 Dose: 1,000 mg Ondansetron HCl (Zofran Odt) 4 mg PO Q6H PRN PRN Reason: nausea, able to take PO Polyethylene Glycol (Miralax) 17 gm PO DAILY PRN PRN Reason: Constipation Simvastatin (Zocor) 20 mg PO BEDTIME [facility] Last Admin: 09/02/16 20:32 Dose: 20 mg Sodium Chloride ([place] Nasal [place]) 0 ml [place] BID PRN PRN Reason: Nasal Congestion Sodium Chloride (Saline Flush) 10 ml FLUSH ASDIRECTED PRN PRN Reason: Keep Vein Open Last Admin: 09/03/16 09:09 Dose: 10 ml Zolpidem Tartrate (Ambien) 5 mg PO BEDTIME PRN PRN Reason: Sleep Last Admin: 09/02/16 20:31 Dose: 5 mg Discontinued Medications Alteplase, Recombinant (Cathflo Activase) 2 mg IVPUSH ONETIME ONE Stop: 08/15/16 16:16 Last Admin: 08/15/16 18:34 Dose: 2 mg Alteplase, Recombinant (Cathflo Activase) 2 mg IVPUSH ONETIME ONE Stop: 08/20/16 13:55 Last Admin: 08/20/16 14:43 Dose: 2 mg Sterile Water (Sterile Water For Injection) Confirm Administered Dose 20 mls @ as directed .ROUTE .STK-MED ONE Stop: 08/15/16 17:41 Last Admin: 08/15/16 17:30 Dose: 2.2 ml - Exam General: Reports: alert, oriented, cooperative, no acute distress. Denies: mild distress, moderate distress, severe distress, sedated, lethargic, obtunded HEENT: Reports: Pupils equal, Pupils reactive, EOMI, Mucous membr. moist/pink Neck: Reports: supple, trachea midline, no JVD Lungs: Reports: Clear to auscultation, Normal respiratory effort. Denies: Decreased breath sounds, Crackles, Rales, Rhonchi, Rub, Stridor, Wheezing Cardiovascular: Reports: Regular Rate, Regular Rhythm, No Murmurs. Denies: Gallops, Rubs Abdomen: Reports: bowel sounds present, soft, no tenderness, no distension. Denies: rigidity, rebound, guarding, tenderness, distension, abnormal bowel sounds, CVA tenderness, organomegaly (Male) Exam: No hernia, Deferred Rectal (Males) Exam: Deferred Back Exam: Reports: normal inspection, full range of motion. Denies: CVA tenderness (L), CVA tenderness (R) Extremities: Reports: no edema, normal pulses, no tenderness/swelling, no clubbing, no cyanosis, no calf tenderness, calf tenderness, other (Right foot: vacc is in place. I don't appreciate drainage, fluctuation, induration, signs of infection) Skin: Reports: warm, dry Wound/Incisions: Reports: healing well Neurological: Reports: no new focal deficit Psy/Mental Status: Reports: alert, normal affect, normal mood, other (normal thought process. coherent). Denies: labile mood, anxious, depressed, agitated, suicidal ideation, homicidal ideation, hallucinations, withdrawal symptoms *Q Meaningful Use (DIS) - VTE *Q VTE Criteria *Q: - Stroke *Q Stroke Criteria *Q: - AMI *Q AMI Criteria *Q:
[2016-09-03] MEDS: Simvastatin 10 MG Tab PO SCH (21:20)
[2016-09-03] MEDS: Amitriptyline 10 MG Tab PO SCH (21:20)
[2016-09-03] MEDS: Acetaminophen/HYDROcodone 325-10 MG Tab PO PRN (21:34)
[2016-09-03] MEDS: Zolpidem 5 MG Tab PO PRN (21:34)
[2016-09-04] MEDS: Sodium Chloride 0.9% 10 ML Syringe FLUSH PRN ×2 (00:55→01:57)
[2016-09-04] MEDS: Piperacillin/Tazobactam 3.375 GM in Sodium Chloride 0.9% 100 ML IV SCH (00:55)
[2016-09-04 06:41] VITALS: BP 138/83
[2016-09-04] MEDS: Aspirin 81 MG Tab.Chew PO SCH (07:11)
[2016-09-04] MEDS: metFORMIN 500 MG Tab PO SCH (07:11)
[2016-09-04] MEDS: Carvedilol 6.25 MG Tab PO SCH (07:12)
[2016-09-04] MEDS: Lisinopril 20 MG Tab PO SCH (07:12)
[2016-09-04] MEDS: Hydrochlorothiazide 25 MG Tab PO SCH (07:13)
[2016-09-04] MEDS: Insulin Aspart 100 Units/ML 3 ML Pen SUBCUT SCH (07:14)
== END 2016-09-04 07:35 | disposition home or self-care (01) | DRG 949 ==
LOC: DL.MS 15:28 → EEVIPCON 15:28
PROVIDERS: ADMIT Family Medicine; ATTEND Family Medicine
DX: Z48.817 Encounter for surgical aftercare following surgery on the skin and subcutaneous tissue (principal); M86.8X7 Other osteomyelitis, ankle and foot; E11.69 Type 2 diabetes mellitus with other specified complication; E78.5 Hyperlipidemia, unspecified; I10 Essential (primary) hypertension; E66.9 Obesity, unspecified; Z79.84 Long term (current) use of oral hypoglycemic drugs; E11.40 Type 2 diabetes mellitus with diabetic neuropathy, unspecified; N40.0 Benign prostatic hyperplasia without lower urinary tract symptoms; Z86.14 Personal history of Methicillin resistant Staphylococcus aureus infection; Z83.3 Family history of diabetes mellitus; F17.210 Nicotine dependence, cigarettes, uncomplicated; Z89.429 Acquired absence of other toe(s), unspecified side; M54.16 Radiculopathy, lumbar region; Z79.4 Long term (current) use of insulin
CPT/HCPCS: 36415; 82565; 82962; 84460; 85025; 85027; 85651; 86140; 97161-GP; 97165-GO; A9270-GY; J1650; J1815-GY; J2543; J2997; J7050

== ENCOUNTER 2018-01-09 16:35 | Emergency (ER) | payer MEDICAID, OTHER ==
[2018-01-09] MEDS ORDERED: Sodium Chloride 0.9% 1,000 ML IV ONE (19:15)
[2018-01-09] MEDS ORDERED: Morphine 2 MG/ML Syringe IVPUSH ONE (19:15)
[2018-01-09] MEDS ORDERED: Ondansetron 4 MG/2 ML SDV IV ONE (19:15)
[2018-01-09 19:55] LABS: CHLORIDE,CL 106 mmol/L (101-111); SODIUM,NA 138 mmol/L (135-145)
--- NOTE | 2018-01-09 20:25 | EDM.PDOC ---
ED HPI GENERAL MEDICAL PROBLEM - General Chief Complaint: Abdominal Pain Stated Complaint: STOMACH PAIN [id number] Time Seen by Provider: 01/09/18 19:00 Source of Information: Reports: Patient History Limitations: Reports: No Limitations - History of Present Illness INITIAL COMMENTS - FREE TEXT/NARRATIVE: C/O right lower abdominal pain intermittent past 3 weeks, more constant past 2 days. More severe with cramping. Diarrhea onset yesterday. Watery no blood> 5 times today. Able to tolerate liquids but anything solid "goes right through". Emesis yesterday, none today, Chills [employer]. No known fever. Daughter reprts several family members diarrhea past week also. patient On antibiotics for foot ulcer at initial onset of pain sx. Recently started on 2 antibiotics on Wednesday for Recurrent diabetic ulcer to right fore foot. RLQ Pain Score (Numeric/FACES): 8 - Related Data Allergies Allergy/AdvReac Type Severity Reaction Status Date / Time No Known Allergies Allergy Verified 01/09/18 17:26 Home Meds: Home Meds Aspirin 81 mg PO DAILY 11/25/14 [History] Hydrochlorothiazide 25 mg PO DAILY 11/25/14 [History] Lisinopril 40 mg PO DAILY 11/25/14 [History] Simvastatin [Zocor] 20 mg PO BEDTIME 11/25/14 [History] metFORMIN [Glucophage] 1,000 mg PO BID 11/25/14 [History] Amitriptyline [Elavil] 10 mg PO BEDTIME 03/30/16 [History] Carvedilol 12.5 mg PO BID 08/14/16 [History] glipiZIDE [Glucotrol XL] 2.5 mg PO DAILY #30 tab.er 09/03/16 [Rx] Past Medical History HEENT History: Reports: Cataract, Impaired Vision Other HEENT History: supposed to wear glasses, but can't see far away with them Cardiovascular History: Reports: Arrhythmia, High Cholesterol, Hypertension Other Cardiovascular History: has had heart pains, nothing is found Respiratory History: Reports: None Gastrointestinal History: Reports: None, Chronic Constipation Other Gastrointestinal History: lactose intolerance Genitourinary History: Reports: BPH Other Genitourinary History: has urgency, up at night to go to bathroom, then the stream is slow Musculoskeletal History: Reports: Back Pain, Chronic, Fracture, Other (See Below ) Other Musculoskeletal History: RIGHT TIBIA; LUMBAR DEGENARATIVE DISC DISEASE; BULDGE OF LUMBAR DISC WITHOUT MYELOPATHY; LUMBAR RADICULPATHY Neurological History: Reports: Neuropathy, Diabetic Psychiatric History: Reports: Depression, Mood Swings Endocrine/Metabolic History: Reports: Diabetes, Type II, Obesity/BMI 30+ Hematologic History: Reports: None Immunologic History: Reports: None Oncologic (Cancer) History: Reports: None Dermatologic History: Reports: Cellulitis, Other (See Below) Other Dermatologic History: HX OF MRSA - Infectious Disease History Infectious Disease History: Reports: Mumps - Past Surgical History Head Surgeries/Procedures: Reports: None HEENT Surgical History: Reports: Cataract Surgery, Tonsillectomy Respiratory Surgical History: Reports: None Male Surgical History: Reports: None Oncologic Surgical History: Reports: None Social & Family History - Family History HEENT: Reports: None Cardiac: Reports: None Respiratory: Reports: None GI: Reports: None : Reports: None OBGYN: Reports: None Musculoskeletal: Reports: Arthritis Neurological: Reports: CVA Psychiatric: Reports: None Endocrine/Metabolic: Reports: Diabetes, type II Hematologic: Reports: None Immunologic: Reports: None Dermatologic: Reports: None Oncologic: Reports: Other (See Below) Other Oncologic Family History: Grandpa had unknown type of cancer - Tobacco Use Smoking Status *Q: Current Every Day Smoker Years of Tobacco use: 30 Packs/Tins Daily: 0.5 - Caffeine Use Caffeine Use: Reports: Coffee - Recreational Drug Use Recreational Drug Use: No ED ROS GENERAL - Review of Systems Review Of Systems: See Below Constitutional: Reports: Chills HEENT: Reports: No Symptoms Respiratory: Reports: No Symptoms Cardiovascular: Reports: No Symptoms GI/Abdominal: Reports: Abdominal Pain, Anorexia, Diarrhea, Decreased Appetite, Nausea (resolved). Denies: Constipation, Melena, Vomiting : Reports: No Symptoms Musculoskeletal: Reports: No Symptoms Skin: Reports: No Symptoms Neurological: Reports: No Symptoms ED EXAM, GI/ABD - Physical Exam Exam: See Below Exam Limited By: No Limitations General Appearance: Alert, Mild Distress Eyes: Bilateral: Normal Appearance Ears: Normal External Exam Nose: Normal Inspection Throat/Mouth: Normal Inspection, Normal Lips, Normal Oropharynx Head: Atraumatic, Normocephalic Neck: Normal Inspection Respiratory/Chest: No Respiratory Distress, Lungs Clear, Normal Breath Sounds Cardiovascular: Normal Peripheral Pulses, Regular Rate, Rhythm GI/Abdominal Exam: Soft, No Distention, Tender (lwer abdomen right greater than left, increased pain RLQ with movement), Abnormal Bowel Sounds (hyperactive). No: Distended, Guarding (Male) Exam: No Hernia Back Exam: Normal Inspection, Full Range of Motion Extremities: Normal Inspection, Normal Range of Motion Neurological: Alert, Oriented, Normal Cognition, Normal Reflexes Psychiatric: Normal Affect, Normal Mood Skin Exam: Warm, Dry, Intact, Normal Color Course - Vital Signs Last Recorded V/S: Last Vital Signs Temp 98.2 F 01/09/18 22:52 Pulse 76 01/09/18 22:52 Resp 18 01/09/18 22:52 BP 129/75 01/09/18 22:52 Pulse Ox 99 01/09/18 22:52 - Orders/Labs/Meds Orders: Active Orders 24 hr Category Date Time Status Blood Glucose Check, Bedside [RC] ONETIME Care 01/09/18 19:15 Active C DIFFICILE TOXIN BY PCR [MREF] Stat Lab 01/09/18 22:48 Ordered CULTURE BLOOD [BC] Stat Lab 01/09/18 19:27 Received CULTURE BLOOD [BC] Stat Lab 01/09/18 19:47 Received CULTURE STOOL [RM] Stat Lab 01/09/18 22:45 Received SHIGA TOXIN 1 & 2 [MREF] Stat Lab 01/09/18 22:45 Received Blood Culture x2 Reflex Set [OM.PC] Stat Oth 01/09/18 19:15 Ordered Labs: Laboratory Tests 01/09/18 01/09/18 01/09/18 Range/Units 19:26 19:27 19:27 WBC 12.6 H (5.0-10.0) 10^3/uL RBC 4.68 (4.6-6.2) 10^6/uL Hgb 13.6 L D (14.0-18.0) g/dL Hct 40.8 (40.0-54.0) % MCV 87.2 (80-100) fL MCH 29.1 (27.0-34.0) pg MCHC 33.3 (33.0-35.0) g/dL Plt Count 212 (150-450) 10^3/uL Neut % (Auto) 68.8 (42.2-75.2) % Lymph % (Auto) 15.3 L (20.5-50.1) % [place] % (Auto) 12.5 H (2-8) % Eos % (Auto) 3.2 H (1.0-3.0) % Baso % (Auto) 0.2 (0.0-1.0) % Sodium 138 (135-145) mmol/L Potassium 4.0 (3.6-5.0) mmol/L Chloride 106 (101-111) mmol/L Carbon Dioxide 22.0 (21.0-31.0) mmol/L Anion Gap 14.0 BUN 14 (7-18) mg/dL Creatinine 1.1 (0.6-1.3) mg/dL Est Cr Clr Drug Dosing 91.76 mL/min Estimated GFR (MDRD) > 60 BUN/Creatinine Ratio 12.72 Glucose 150 H (74-105) mg/dL POC Glucose 153 H (70-105) mg/dl Lactic Acid (0.5-2.2) mmol/L Calcium 8.5 (8.4-10.2) mg/dl Total Bilirubin 0.7 (0.2-1.0) mg/dL AST 18 (10-42) IU/L ALT 12 (10-60) IU/L Alkaline Phosphatase 66 (42-121) IU/L Total Protein 6.7 (6.7-8.2) g/dl Albumin 3.3 (3.2-5.5) g/dl Globulin 3.4 Albumin/Globulin Ratio 0.97 Amylase 36 (28-100) U/L Lipase 23 (22-51) U/L /05/17 Range/Units 19:27 WBC (5.0-10.0) 10^3/uL RBC (4.6-6.2) 10^6/uL Hgb (14.0-18.0) g/dL Hct (40.0-54.0) % MCV (80-100) fL MCH (27.0-34.0) pg MCHC (33.0-35.0) g/dL Plt Count (150-450) 10^3/uL Neut % (Auto) (42.2-75.2) % Lymph % (Auto) (20.5-50.1) % [place] % (Auto) (2-8) % Eos % (Auto) (1.0-3.0) % Baso % (Auto) (0.0-1.0) % Sodium (135-145) mmol/L Potassium (3.6-5.0) mmol/L Chloride (101-111) mmol/L Carbon Dioxide (21.0-31.0) mmol/L Anion Gap BUN (7-18) mg/dL Creatinine (0.6-1.3) mg/dL Est Cr Clr Drug Dosing mL/min Estimated GFR (MDRD) BUN/Creatinine Ratio Glucose (74-105) mg/dL POC Glucose (70-105) mg/dl Lactic Acid 1.6 (0.5-2.2) mmol/L Calcium (8.4-10.2) mg/dl Total Bilirubin (0.2-1.0) mg/dL AST (10-42) IU/L ALT (10-60) IU/L Alkaline Phosphatase (42-121) IU/L Total Protein (6.7-8.2) g/dl Albumin (3.2-5.5) g/dl Globulin Albumin/Globulin Ratio Amylase (28-100) U/L Lipase (22-51) U/L Meds: Medications Discontinued Medications Generic Name Dose Route Start Last Admin Trade Name Freq PRN Reason Stop Dose Admin Sodium Chloride 1,000 mls @ 999 mls/hr 01/09/18 19:15 01/09/18 19:26 Normal Saline IV 01/09/18 20:15 999 mls/hr .BOLUS ONE Administration Morphine Sulfate 2 mg 01/09/18 19:15 01/09/18 19:27 Morphine IVPUSH 01/09/18 19:16 2 mg ONETIME ONE Administration Ondansetron HCl 4 mg 01/09/18 19:15 01/09/18 19:27 Zofran IV 01/09/18 19:16 4 mg ONETIME ONE Administration Departure - Departure Time of Disposition: 22:44 Disposition: Home, Self-Care 01 Condition: Good Clinical Impression: Diarrhea, Ileitis Diabetic foot ulcer Qualifiers: Diabetic foot ulcer location: midfoot Diabetes mellitus type: type 2 Laterality : right Non-pressure ulcer stage: limited to breakdown of skin Qualified Code(s) : E11.621 - Type 2 diabetes mellitus with foot ulcer - Discharge Information *PRESCRIPTION DRUG MONITORING PROGRAM REVIEWED*: No Instructions: Clostridium Difficile Infection Referrals: PCP,None [Ordering Only Provider] - Forms: ED Department Discharge Additional Instructions: Follow up with Primary care this week increase fluid intake monitor blood sugars vancomycin 125mg one 4 times daily x 10 days good hand washing follow up symptoms worsen, dizzy lightheaded fever, worsening pain or blood in stool - My Orders Last 24 Hours: My Active Orders 01/09/18 19:15 Blood Glucose Check, Bedside [RC] ONETIME Blood Culture x2 Reflex Set [OM.PC] Stat 01/09/18 19:27 CULTURE BLOOD [BC] Stat 01/09/18 19:47 CULTURE BLOOD [BC] Stat 01/09/18 22:45 CULTURE STOOL [RM] Stat SHIGA TOXIN 1 & 2 [MREF] Stat 01/09/18 22:48 C DIFFICILE TOXIN BY PCR [MREF] Stat - Assessment/Plan Last 24 Hours: My Active Orders 01/09/18 19:15 Blood Glucose Check, Bedside [RC] ONETIME Blood Culture x2 Reflex Set [OM.PC] Stat 01/09/18 19:27 CULTURE BLOOD [BC] Stat 01/09/18 19:47 CULTURE BLOOD [BC] Stat 01/09/18 22:45 CULTURE STOOL [RM] Stat SHIGA TOXIN 1 & 2 [MREF] Stat 01/09/18 22:48 C DIFFICILE TOXIN BY PCR [MREF] Stat
[2018-01-09 22:57] VITALS: BP 129/75
== END 2018-01-09 22:55 | disposition home or self-care (01) ==
LOC: DL.ED 16:35
DX: K52.9 Noninfective gastroenteritis and colitis, unspecified (principal); E11.621 Type 2 diabetes mellitus with foot ulcer; I10 Essential (primary) hypertension; E78.00 Pure hypercholesterolemia, unspecified; F17.210 Nicotine dependence, cigarettes, uncomplicated; Z79.82 Long term (current) use of aspirin; Z79.899 Other long term (current) drug therapy; Z79.84 Long term (current) use of oral hypoglycemic drugs
CPT/HCPCS: 36415; 74176; 80053; 82150; 82962; 83605; 83690; 85025; 87040; 87045; 87493; 87899; 96361; 96374; 96375; 99283; 99284; J2270; J2405; J7030; 87046

== ENCOUNTER 2021-03-25 15:38 | Emergency (ER) | payer MEDICAID ==
[2021-03-25 15:44] VITALS: BP 118/82; PULSE 87
--- NOTE | 2021-03-25 15:50 | EDM.PDOC ---
ED HPI GENERAL MEDICAL PROBLEM - General Chief Complaint: Chest Pain Stated Complaint: AMBULANCE Time Seen by Provider: 03/25/21 15:35 Source of Information: Reports: Patient History Limitations: Reports: No Limitations - History of Present Illness INITIAL COMMENTS - FREE TEXT/NARRATIVE: This 55 yo male patient was brought to the ED by [facility] due to upper abdominal or lower chest pain. The patient reports his symptoms started today. The patient was in the clinic this morning, but did not see a provider. The EMS crew gave the patient aspirin and 2 doses of nitro. The patient reports his symptoms have significantly improved since the nitro, but the patient reports he still has some discomfort in his lower chest/upper abdomen. The patient reports he did have peppered steak soup for lunch today. The patient denies any history of abdominal surgeries. Onset: Today Duration: Constant Location: Reports: Chest, Abdomen Quality: Reports: Ache Severity: Moderate Improves with: Reports: Other Worsens with: Reports: None Associated Symptoms: Reports: Chest Pain Treatments [employer]: Reports: Aspirin, Nitroglycerin Chest Pain Score (Numeric/FACES): 5 - Related Data Allergies Allergy/AdvReac Type Severity Reaction Status Date / Time No Known Allergies Allergy Verified 01/09/18 17:26 Home Meds: Home Meds Aspirin 81 mg PO DAILY 11/25/14 [History] Hydrochlorothiazide 25 mg PO DAILY 11/25/14 [History] Lisinopril 40 mg PO DAILY 11/25/14 [History] Simvastatin [Zocor] 20 mg PO BEDTIME 11/25/14 [History] metFORMIN [Glucophage] 1,000 mg PO BID 11/25/14 [History] Amitriptyline [Elavil] 10 mg PO BEDTIME 03/30/16 [History] carvediloL [Carvedilol] 12.5 mg PO BID 08/14/16 [History] glipiZIDE [Glucotrol XL] 2.5 mg PO DAILY #30 tab.er 09/03/16 [Rx] Past Medical History HEENT History: Reports: Cataract, Impaired Vision Other HEENT History: supposed to wear glasses, but can't see far away with them Cardiovascular History: Reports: Arrhythmia, High Cholesterol, Hypertension Other Cardiovascular History: has had heart pains, nothing is found Respiratory History: Reports: None Gastrointestinal History: Reports: None, Chronic Constipation Other Gastrointestinal History: lactose intolerance Genitourinary History: Reports: BPH Other Genitourinary History: has urgency, up at night to go to bathroom, then the stream is slow Musculoskeletal History: Reports: Back Pain, Chronic, Fracture, Other (See Below) Other Musculoskeletal History: RIGHT TIBIA; LUMBAR DEGENARATIVE DISC DISEASE; BULDGE OF LUMBAR DISC WITHOUT MYELOPATHY; LUMBAR RADICULPATHY Neurological History: Reports: Neuropathy, Diabetic Psychiatric History: Reports: Depression, Mood Swings Endocrine/Metabolic History: Reports: Diabetes, Type II, Obesity/BMI 30+ Hematologic History: Reports: None Immunologic History: Reports: None Oncologic (Cancer) History: Reports: None Dermatologic History: Reports: Cellulitis, Other (See Below) Other Dermatologic History: HX OF MRSA - Infectious Disease History Infectious Disease History: Reports: Mumps - Past Surgical History Head Surgeries/Procedures: Reports: None HEENT Surgical History: Reports: Cataract Surgery, Tonsillectomy Respiratory Surgical History: Reports: None Male Surgical History: Reports: None Oncologic Surgical History: Reports: None Social & Family History - Family History HEENT: Reports: None Cardiac: Reports: None Respiratory: Reports: None GI: Reports: None : Reports: None OBGYN: Reports: None Musculoskeletal: Reports: Arthritis Neurological: Reports: CVA Psychiatric: Reports: None Endocrine/Metabolic: Reports: Diabetes, type II Hematologic: Reports: None Immunologic: Reports: None Dermatologic: Reports: None Oncologic: Reports: Other (See Below) Other Oncologic Family History: Grandpa had unknown type of cancer - Caffeine Use Caffeine Use: Reports: Coffee ED ROS GENERAL - Review of Systems Review Of Systems: Comprehensive ROS is negative, except as noted in HPI. ED EXAM, GENERAL - Physical Exam Exam: See Below Exam Limited By: No Limitations General Appearance: Alert, WD/WN, Mild Distress Eye Exam: Bilateral Eye: EOMI, Normal Inspection, PERRL Ears: Normal External Exam, Normal Canal, Hearing Grossly Normal, Normal TMs Nose: Normal Inspection, Normal Mucosa, No Blood Throat/Mouth: Normal Inspection, Normal Lips, Normal Teeth, Normal Gums, Normal Oropharynx, Normal Voice, No Airway Compromise Head: Atraumatic, Normocephalic Neck: Normal Inspection, Supple, Non-Tender, Full Range of Motion Respiratory/Chest: No Respiratory Distress, Lungs Clear, Normal Breath Sounds, No Accessory Muscle Use, Chest Non-Tender Cardiovascular: Normal Peripheral Pulses, Regular Rate, Rhythm, No Edema, No Gallop, No JVD, No Murmur, No Rub GI/Abdominal: Tender (epigastric tenderness) (Male) Exam: Deferred Rectal (Males) Exam: Deferred Back Exam: Normal Inspection, Full Range of Motion, NT Extremities: Normal Inspection, Normal Range of Motion, Non-Tender, Normal Capillary Refill, No Pedal Edema Neurological: Alert, Oriented, CN II-XII Intact, Normal Cognition, Normal Gait, Normal Reflexes, No Motor/Sensory Deficits Psychiatric: Normal Affect, Normal Mood Skin Exam: Warm, Dry, Intact, Normal Color, No Rash Lymphatic: No Adenopathy #1 Interpretation EKG Date: 03/25/21 Time: 15:42 Rhythm: NSR Rate (Beats/Min): 87 Faxon: Normal P-Wave: Present QRS: Normal ST-T: Normal QT: Normal Course - Vital Signs Last Recorded V/S: Last Vital Signs Temp 97.6 F 03/25/21 15:38 Pulse 87 03/25/21 15:38 Resp 18 03/25/21 15:38 BP 118/82 03/25/21 15:38 Pulse Ox 97 03/25/21 15:38 - Orders/Labs/Meds Orders: Active Orders 24 hr Category Date Time Status CULTURE BLOOD [BC] Stat Lab 03/25/21 15:33 Ordered Labs: Laboratory Tests 03/25/21 03/25/21 03/25/21 Range/Units 15:45 15:45 15:45 WBC 10.8 H (5.0-10.0) 10^3/uL RBC 3.95 L (4.6-6.2) 10^6/uL Hgb 11.7 L D (14.0-18.0) g/dL Hct 34.9 L (40.0-54.0) % MCV 88.4 (80-100) fL MCH 29.6 (27.0-34.0) pg MCHC 33.5 (33.0-35.0) g/dL Plt Count 243 (150-450) 10^3/uL Neut % (Auto) 77.3 H (42.2-75.2) % Lymph % (Auto) 12.6 L (20.5-50.1) % [place] % (Auto) 8.0 (2-8) % Eos % (Auto) 1.8 (1.0-3.0) % Baso % (Auto) 0.3 (0.0-1.0) % Sodium 140 (136-145) mmol/L Potassium 4.0 (3.5-5.1) mmol/L Chloride 104 (98-107) mmol/L Carbon Dioxide 25 (21-32) mmol/L Anion Gap 15.0 H (7-13) mEq/L BUN 22 H (7-18) mg/dL Creatinine 1.60 H (0.70-1.30) mg/dL Est Cr Clr Drug Dosing TNP Estimated GFR (MDRD) 45 BUN/Creatinine Ratio 13.8 (No establ ref range) Glucose 247 H (70-99) mg/dL Lactic Acid 1.4 (0.4-2.0) mmol/L Calcium 8.1 L (8.5-10.1) mg/dL Magnesium 2.0 (1.8-2.4) mg/dL Total Bilirubin 0.2 (0.2-1.0) mg/dL AST 12 L (15-37) U/L ALT 18 (16-63) U/L Alkaline Phosphatase 129 H (46-116) U/L Troponin I High Sens 44 (<=76) pg/mL Total Protein 6.8 (6.4-8.2) g/dL Albumin 2.5 L (3.4-5.0) g/dL Globulin 4.3 Albumin/Globulin Ratio 0.58 Amylase 620 H (25-115) U/L Lipase > 2250 H (73-393) U/L Meds: Medications Discontinued Medications Generic Name Dose Route Start Last Admin Trade Name Freq PRN Reason Stop Dose Admin Barium Sulfate 450 ml 03/25/21 16:29 03/25/21 17:06 Barium Sulfate W/V 2.1% Oral Susp 450 Ml Bottle PO 03/25/21 16:30 225 ml ONETIME ONE Administration Lactated Ringer's 1,000 mls @ 999 mls/hr 03/25/21 16:19 03/25/21 17:00 Ringers, Lactated IV 03/25/21 17:19 999 mls/hr .BOLUS ONE Administration Iopamidol 100 ml 03/25/21 16:20 03/25/21 17:05 Iopamidol 612 Mg/Ml 100 Ml Bottle IVPUSH 03/25/21 16:21 100 ml ONETIME ONE Administration Departure - Departure Time of Disposition: 17:41 Disposition: Home, Self-Care 01 Condition: Fair Clinical Impression: Acute pancreatitis Qualifiers: Pancreatitis type: unspecified pancreatitis type Acute pancreatitis complication: unspecified Qualified Code(s): K85.90 - Acute pancreatitis without necrosis or infection, unspecified Instructions: Acute Pancreatitis, [id number] Forms: ED Department Discharge Care Plan Goals: The patient was advised of the examination, lab, EKG, x-ray and CT results during the visit. The patient reports his symptoms were gone during the visit. The patient was encouraged to stick to a bland diet. The patient should follow- up with his primary care facility for continued evaluation and management. If the patient has any additional symptoms or concerns, the patient should either return to the emergency department or visit his primary care facility. Sepsis Event Note (ED) - Focused Exam Vital Signs: Vital Signs Temp Pulse Resp BP Pulse Ox 03/25/21 15:38 97.6 F 87 18 118/82 97 - My Orders Last 24 Hours: My Active Orders 03/25/21 15:33 CULTURE BLOOD [BC] Stat - Assessment/Plan Last 24 Hours: My Active Orders 03/25/21 15:33 CULTURE BLOOD [BC] Stat
[2021-03-25 16:13] LABS: CHLORIDE,CL 104 mmol/L (98-107); SODIUM,NA 140 mmol/L (136-145)
--- NOTE | 2021-03-25 16:16 | CR ---
EXAMINATION: Chest 1V Frontal SEX: Male AGE: 55 years CLINICAL HISTORY: 55-year-old obese male with CHEST PAIN. Comparison CXR December 2008 and April 2011. Interpretation: Prominent cardiac silhouette and generalized mild shaggy accentuation of the bronchovascular markings (technique) but no cephalization of flow, alveolar edema or dependent pleural fluid accumulation i.e. no pleural effusions. No suspicious new lung nodule or mass lesion. No hilar lymphadenopathy. No alveolar infiltrate, air bronchograms or peripheral "groundglass" interstitial lung densities. No cystic or bullous emphysematous lesions. No air trapping. No pneumothorax or pneumomediastinum. Midline tracheal bronchial airways unremarkable. CONCLUSION: No acute new cardiopulmonary abnormality (portable AP CXR versus previous PA CXR).
[2021-03-25] MEDS ORDERED: Lactated Ringers 1,000 ML IV ONE (16:19)
[2021-03-25] MEDS ORDERED: Iopamidol 612 MG/ML 100 ML Bottle IVPUSH ONE (16:20)
[2021-03-25] MEDS ORDERED: Barium Sulfate w/v 2.1% Oral Susp 450 ML Bottle PO ONE (16:29)
--- NOTE | 2021-03-25 17:10 | CT ---
EXAMINATION: Abdomen Pelvis w Cont SEX: Male AGE: 55 years CLINICAL HISTORY: 55-year-old afebrile, hypertensive, obese (319 pounds) diabetic male smoker with upper abdominal PAIN. Serum WBC 10,800. Lipase 2250. Comparison CT 09 January 2018 "unremarkable pancreas". Scan technique: Volume acquisition of data emergency CT scan of the abdomen and pelvis obtained after oral ingestion 1 cup of barium and during/after intravenous infusion 100 cc nonionic Isovue contrast 3 cc/s via injector while patient was lying supine on the Siemens multislice scanner [place], [place]. All data archived in the PACS system for storage, reformatting axial/sagittal/coronal planes and study. Interpretation: Abnormal. 1. *Edematous ("dirty fat") head and uncinate process of the pancreas new since comparison exam 09 January 2018. 2. No cystic/solid pancreatic mass lesion, calcifications, phlegmon, or pancreatic ductal dilatation. No pseudocyst. 3. Gallbladder, liver, stomach, spleen and adrenal glands anatomically correct i.e. unremarkable. 4. Normal reniform size, axis and configuration bilaterally. No cystic or solid renal cortical mass lesion, nephrolithiasis or signs of obstructive uropathy. Symmetrically distended unenhanced urinary bladder unremarkable. Midline Prostate calcifications. Symmetric normal seminal vesicles. 5. Diverticula sigmoid, descending left colon, hepatic flexure without associated signs of inflammation (diverticulosis). 6. Normal caliber aortoiliac vessels. No aneurysm or dissection. Marginal spondylosis spine. No fracture or dislocation. 7. lung bases clear. Normal cardiac silhouette. No pericardial or pleural effusions. 8. No pelvic or abdominal mass lesion. No sign of mechanical bowel obstruction, ascites or free intraperitoneal air. CONCLUSION: Acute pancreatitis. Pancolonic diverticulosis.
== END 2021-03-25 17:49 | disposition home or self-care (01) ==
LOC: DL.ED 15:38
DX: K85.90 Acute pancreatitis without necrosis or infection, unspecified (principal); E78.00 Pure hypercholesterolemia, unspecified; I10 Essential (primary) hypertension; E11.40 Type 2 diabetes mellitus with diabetic neuropathy, unspecified; Z79.82 Long term (current) use of aspirin; Z79.84 Long term (current) use of oral hypoglycemic drugs; E66.9 Obesity, unspecified
CPT/HCPCS: 36415; 71045; 74177; 80053; 82150; 83605; 83690; 83735; 84484; 85025; 93005; 99285; J7120; Q9967

== ENCOUNTER 2021-06-14 11:08 | Emergency (ER) | payer SELFPAY | END 2021-06-14 11:30 | disposition left against medical advice (07) | LOC: DL.ED 11:08 | DX: Z53.21 Procedure and treatment not carried out due to patient leaving prior to being seen by health care provider (principal) ==

== ENCOUNTER 2021-11-10 06:11 | Emergency (ER) | payer MEDICAID ==
[2021-11-10] MEDS ORDERED: Labetalol 20 MG/4 ML Syringe IVPUSH ONE ×2 (06:44→08:34)
[2021-11-10 07:03] LABS: ANION GAP 13.7 mEq/L (7-13)
[2021-11-10 08:35] LABS: AMPHETAMINES,URINE NEGATIVE (NEGATIVE); BARBITURATES,URINE NEGATIVE (NEGATIVE); BENZODIAZEPINE,URINE NEGATIVE (NEGATIVE); MDMA (ECSTASY), URINE NEGATIVE (NEGATIVE); METHADONE,URINE NEGATIVE (NEGATIVE); METHAMPHETAMINES,URINE NEGATIVE (NEGATIVE); OPIATES,URINE NEGATIVE (NEGATIVE); OXYCODONE,URINE NEGATIVE (NEGATIVE); PHENCYCLIDINE,URINE NEGATIVE (NEGATIVE); TCA,URINE NEGATIVE (NEGATIVE)
[2021-11-10] MEDS ORDERED: niCARdipine HCl 25 MG in Sodium Chloride 0.9% 240 ML IV SCH (09:30)
[2021-11-10] MEDS ORDERED: Lisinopril 20 MG Tab PO ONE (10:00)
[2021-11-10] MEDS ORDERED: Hydrochlorothiazide 25 MG Tab PO ONE (10:09)
== END 2021-11-10 10:47 | disposition home or self-care (01) ==
LOC: DL.ED 06:11
DX: I67.4 Hypertensive encephalopathy (principal); E11.65 Type 2 diabetes mellitus with hyperglycemia; I12.9 Hypertensive chronic kidney disease with stage 1 through stage 4 chronic kidney disease, or unspecified chronic kidney disease; N18.9 Chronic kidney disease, unspecified; E78.00 Pure hypercholesterolemia, unspecified; E66.9 Obesity, unspecified; Z68.30 Body mass index [BMI] 30.0-30.9, adult; Z79.899 Other long term (current) drug therapy; Z79.82 Long term (current) use of aspirin; Z79.84 Long term (current) use of oral hypoglycemic drugs
CPT/HCPCS: 36415; 70450; 80053; 80305-QW; 80307; 81001; 82947; 83605; 83880; 84484; 85025; 85610; 87040; 93005; 93010; 96374; 96376; 99284; 99285-25; A9270-GY; J3490

== ENCOUNTER 2023-04-16 18:04 | Emergency (ER) | payer MEDICAID ==
[2023-04-16] MEDS ORDERED: Sodium Chloride 0.9% 10 ML Syringe FLUSH PRN (18:23)
[2023-04-16] MEDS ORDERED: Sodium Chloride 0.9% 1,000 ML IV ONE ×2 (18:30→19:38)
[2023-04-16 18:36] LABS: BASOPHILS PERCENT AUTO 0.2 % (0.0-1.0); EOSINOPHILS PERCENT AUTO 0.2 % (1.0-3.0); HEMATOCRIT 38.9 % (40.0-54.0); HEMOGLOBIN 12.9 g/dL (14.0-18.0); LYMPHOCYTES PERCENT AUTO 8.7 % (20.5-50.1); MEAN CORPUSCULAR HEMOGLOBIN 28.9 pg (27.0-34.0); MEAN CORPUSCULAR HGB CONC 33.2 g/dL (33.0-35.0); MONOCYTES PERCENT AUTO 11.2 % (2-8); NEUTROPHILS PERCENT AUTO 79.7 % (42.2-75.2); PLATELET COUNT,PLT 231 10^3/uL (150-450); RED BLOOD CELL COUNT 4.47 10^6/uL (4.6-6.2); WHITE BLOOD CELL COUNT,WBC 18.3 10^3/uL (5.0-10.0)
[2023-04-16] MEDS ORDERED: Vancomycin 2 GM in Sodium Chloride 0.9% 500 ML IV ONE (18:37)
[2023-04-16] MEDS ORDERED: Acetaminophen 500 MG Tab PO ONE (18:42)
[2023-04-16 18:54] LABS: A/G RATIO 0.46; ALANINE AMINOTRANSFERASE,ALT 25 U/L (16-63); ALBUMIN 2.4 g/dL (3.4-5.0); ALKALINE PHOSPHATASE 123 U/L (46-116); ANION GAP 12.4 mEq/L (7-13); ASPARTATE AMNIOTRANSFERASE,AST 26 U/L (15-37); BILIRUBIN TOTAL 0.6 mg/dL (0.2-1.0); BLOOD UREA NITROGEN,BUN 23 mg/dL (7-18); BUN/CREATININE RATIO 9.9 (No establ ref range); C-REACTIVE PROTEIN 15.09 ng/dL (<=0.50); CARBON DIOXIDE,CO2 25 mmol/L (21-32); CHLORIDE,CL 98 mmol/L (98-107); CREATININE 2.33 mg/dL (0.70-1.30); ESTIMATED GFR 31 mL/min (>=60); GLUCOSE RANDOM 225 mg/dL (70-99); MAGNESIUM 1.6 mg/dL (1.8-2.4); POTASSIUM,K 4.4 mmol/L (3.5-5.1); PROTEIN TOTAL,TP 7.6 g/dL (6.4-8.2); SODIUM,NA 131 mmol/L (136-145)
[2023-04-16 19:19] LABS: CORONAVIRUS COVID-19 NAA NEGATIVE (NEGATIVE); INFLUENZA A NAA NEGATIVE (NEGATIVE); INFLUENZA B NAA NEGATIVE (NEGATIVE)
[2023-04-16] MEDS ORDERED: Piperacillin/Tazobactam 3.375 GM in Sodium Chloride 0.9% 100 ML IV ONE (19:24)
[2023-04-16] MEDS ORDERED: Ketorolac 30 MG/ML SDV IVPUSH ONE (19:38)
[2023-04-16 20:05] LABS: APPEARANCE,URINE CLEAR (CLEAR); BILIRUBIN,URINE NEGATIVE (NEGATIVE); COLOR,URINE YELLOW (YELLOW); GLUCOSE,URINE 500 (NEGATIVE); KETONES,URINE NEGATIVE (NEGATIVE); LEUKOCYTE ESTERASE,URINE NEGATIVE (NEGATIVE); NITRITE,URINE NEGATIVE (NEGATIVE); OCCULT BLOOD,URINE MODERATE (NEGATIVE); PROTEIN,URINE >=300 (NEGATIVE)
[2023-04-16 20:09] LABS: AMPHETAMINES,URINE NEGATIVE (NEGATIVE); BARBITURATES,URINE NEGATIVE (NEGATIVE); BENZODIAZEPINE,URINE NEGATIVE (NEGATIVE); MDMA (ECSTASY), URINE NEGATIVE (NEGATIVE); METHADONE,URINE NEGATIVE (NEGATIVE); METHAMPHETAMINES,URINE NEGATIVE (NEGATIVE); OPIATES,URINE NEGATIVE (NEGATIVE); OXYCODONE,URINE NEGATIVE (NEGATIVE); PHENCYCLIDINE,URINE NEGATIVE (NEGATIVE); TCA,URINE NEGATIVE (NEGATIVE)
[2023-04-16 20:12] LABS: AMORPHOUS SEDIMENT,URINE MODERATE /HPF (NOT SEEN); BACTERIA,URINE FEW /HPF (0-FEW/HPF); EPITHELIAL CELLS,URINE FEW /HPF (NOT SEEN); MUCUS,URINE FEW /LPF (NOT SEEN); WBC,URINE 0-5 /HPF (0-5/HPF)
[2023-04-16] MEDS ORDERED: Clindamycin in 0.9 % Sod Chlor 900 MG in Premix Bag 1 BAG IV ONE ×2 (21:02)
[2023-04-16] MEDS ORDERED: Clindamycin in 0.9 % Sod Chlor 600 MG in Premix Bag 1 BAG IV ONE ×2 (21:08)
== END 2023-04-16 21:33 ==
LOC: DL.ED 18:04
DX: A41.9 Sepsis, unspecified organism (principal); L03.116 Cellulitis of left lower limb; E11.621 Type 2 diabetes mellitus with foot ulcer; E11.40 Type 2 diabetes mellitus with diabetic neuropathy, unspecified; I10 Essential (primary) hypertension; E78.5 Hyperlipidemia, unspecified; Z79.84 Long term (current) use of oral hypoglycemic drugs; Z79.899 Other long term (current) drug therapy; E66.9 Obesity, unspecified; Z68.30 Body mass index [BMI] 30.0-30.9, adult; Z20.822 Contact with and (suspected) exposure to COVID-19
CPT/HCPCS: 0240U; 36415; 73700; 80053; 80305-QW; 81001; 83605; 83735; 84145; 85025; 86140; 87040; 96365; 96366; 96368; 96375; 99285; 99285-25; A9270-GY; J1885; J2543; J3370; J3490; J7030; J7040

== ENCOUNTER 2023-06-09 10:35 | Emergency (ER) | payer MEDICAID ==
[2023-06-09] MEDS: cloNIDine 0.1 MG Tab PO ONE (11:49)
[2023-06-09] MEDS: NIFEdipine 30 MG Tab.ER PO ONE (11:50)
[2023-06-09 11:56] LABS: ALBUMIN 2.5 g/dL (3.4-5.0); ANION GAP 14.3 mEq/L (7-13); BILIRUBIN TOTAL 0.3 mg/dL (0.2-1.0); BUN/CREATININE RATIO 12.4 (No establ ref range); CALCIUM 7.9 mg/dL (8.5-10.1); CREATININE 2.02 mg/dL (0.70-1.30); EST CRCL DRUG DOSING (CG) 47.06 mL/min; POTASSIUM,K 5.3 mmol/L (3.5-5.1); PROTEIN TOTAL,TP 6.7 g/dL (6.4-8.2)
[2023-06-09 12:02] LABS: A/G RATIO 0.6
[2023-06-09 12:34] LABS: HEMATOCRIT 33.8 % (40.0-54.0); MEAN CORPUSCULAR HEMOGLOBIN 28.7 pg (27.0-34.0); MEAN CORPUSCULAR HGB CONC 32.5 g/dL (33.0-35.0); MEAN CORPUSCULAR VOLUME 88.3 fL (80-100); PLATELET COUNT,PLT 298 10^3/uL (150-450); RED BLOOD CELL COUNT 3.83 10^6/uL (4.6-6.2); WHITE BLOOD CELL COUNT,WBC 10.1 10^3/uL (5.0-10.0)
[2023-06-09 12:36] LABS: BASOPHILS PERCENT AUTO 0.1 % (0.0-1.0); EOSINOPHILS PERCENT AUTO 5.9 % (1.0-3.0); MONOCYTES PERCENT AUTO 9.3 % (2-8); NEUTROPHILS PERCENT AUTO 64.7 % (42.2-75.2)
[2023-06-09 13:20] LABS: EOSINOPHILS PERCENT MAN 5 % (1-3); LYMPHOCYTES PERCENT MAN 23 % (20-50); MONOCYTES PERCENT MAN 5 % (2-8); MYELOCYTE PERCENT MAN 1; PLATELET COUNT ESTIMATE ADEQUATE; SEG NEUTROPHILS PERCENT MAN 66 % (42-75)
[2023-06-09 13:22] LABS: APPEARANCE,URINE CLEAR (CLEAR); BILIRUBIN,URINE NEGATIVE (NEGATIVE); COLOR,URINE YELLOW (YELLOW); GLUCOSE,URINE 100 (NEGATIVE); KETONES,URINE NEGATIVE (NEGATIVE); LEUKOCYTE ESTERASE,URINE NEGATIVE (NEGATIVE); NITRITE,URINE NEGATIVE (NEGATIVE); OCCULT BLOOD,URINE TRACE-INTACT (NEGATIVE); PROTEIN,URINE >=300 (NEGATIVE); UROBILINOGEN,URINE 0.2 mg/dL (0.2-1.0)
[2023-06-09 13:31] LABS: EPITHELIAL CELLS,URINE FEW /HPF (NOT SEEN)
[2023-06-09 13:32] LABS: BACTERIA,URINE FEW /HPF (0-FEW/HPF); RBC,URINE 0-5 /HPF (0-5); WBC,URINE 0-5 /HPF (0-5/HPF)
== END 2023-06-09 14:07 | disposition home or self-care (01) ==
LOC: DL.ED 10:35
DX: Z53.21 Procedure and treatment not carried out due to patient leaving prior to being seen by health care provider (principal)
CPT/HCPCS: 36415; 80053; 81001; 82947; 85025; 99284; A9270-GY

== ENCOUNTER 2023-11-15 16:13 | Emergency (ER) | payer MEDICAID ==
[2023-11-15 16:49] LABS: HEMOGLOBIN 10.7 g/dL (14.0-18.0); MEAN CORPUSCULAR HEMOGLOBIN 30.4 pg (27.0-34.0); MEAN CORPUSCULAR HGB CONC 34.5 g/dL (33.0-35.0); MEAN CORPUSCULAR VOLUME 88.1 fL (80-100); PLATELET COUNT,PLT 230 10^3/uL (150-450); RED BLOOD CELL COUNT 3.52 10^6/uL (4.6-6.2); WHITE BLOOD CELL COUNT,WBC 33.8 10^3/uL (5.0-10.0)
[2023-11-15 16:50] LABS: LYMPHOCYTES PERCENT AUTO 2.6 % (20.5-50.1); MONOCYTES PERCENT AUTO 3.9 % (2-8); NEUTROPHILS PERCENT AUTO 93.5 % (42.2-75.2)
[2023-11-15 17:08] LABS: ALBUMIN 1.9 g/dL (3.4-5.0); BILIRUBIN TOTAL 1.2 mg/dL (0.2-1.0); BUN/CREATININE RATIO 10.7 (No establ ref range); CALCIUM 7.8 mg/dL (8.5-10.1); CREATININE 4.01 mg/dL (0.70-1.30); EST CRCL DRUG DOSING (CG) 23.71 mL/min; MAGNESIUM 1.6 mg/dL (1.8-2.4); PROTEIN TOTAL,TP 6.5 g/dL (6.4-8.2)
[2023-11-15 17:11] LABS: A/G RATIO 0.41
[2023-11-15 17:13] LABS: LACTIC ACID 2.9 mmol/L (0.4-2.0)
[2023-11-15] MEDS: Sodium Chloride 0.9% 1,000 ML IV ONE ×2 (17:15→17:51)
[2023-11-15 17:29] LABS: C-REACTIVE PROTEIN 20.51 ng/dL (<=0.50)
[2023-11-15 17:35] LABS: BAND PERCENT MAN 4 %; SEG NEUTROPHILS PERCENT MAN 91 % (42-75)
[2023-11-15 17:36] LABS: LYMPHOCYTES PERCENT MAN 3 % (20-50); MONOCYTES PERCENT MAN 2 % (2-8)
[2023-11-15] MEDS: Magnesium Sulfate/Water 2 GM in Premix Bag 1 BAG IV ONE (17:39)
[2023-11-15] MEDS: PIPERACILLIN IV ONE (17:39)
[2023-11-15] MEDS: TAZOBACTAM IV ONE (17:39)
[2023-11-15] MEDS: SODIUM CHLORIDE 0.9% IV ONE (17:39)
== END 2023-11-15 19:54 | disposition critical access hospital (66) ==
LOC: DL.ED 16:13
DX: A41.9 Sepsis, unspecified organism (principal); R65.20 Severe sepsis without septic shock; I12.9 Hypertensive chronic kidney disease with stage 1 through stage 4 chronic kidney disease, or unspecified chronic kidney disease; N18.9 Chronic kidney disease, unspecified; E11.22 Type 2 diabetes mellitus with diabetic chronic kidney disease; E11.621 Type 2 diabetes mellitus with foot ulcer; L97.419 Non-pressure chronic ulcer of right heel and midfoot with unspecified severity; E11.21 Type 2 diabetes mellitus with diabetic nephropathy; E86.9 Volume depletion, unspecified; E61.2 Magnesium deficiency; E78.00 Pure hypercholesterolemia, unspecified; E66.9 Obesity, unspecified; F17.210 Nicotine dependence, cigarettes, uncomplicated; Z79.899 Other long term (current) drug therapy; Z79.84 Long term (current) use of oral hypoglycemic drugs; Z79.82 Long term (current) use of aspirin; Z68.32 Body mass index [BMI] 32.0-32.9, adult
CPT/HCPCS: 36415; 73630; 80053; 82947; 83605; 83735; 85025; 86140; 87040; 87070; 93010; 99284; J2543; J3370; J3475; J3490; J7030; J7050; 87077; 96365; 96368

== ENCOUNTER 2024-01-24 12:49 | Emergency (ER) | payer MEDICAID | END 2024-01-24 13:30 | disposition home or self-care (01) | LOC: DL.ED 12:49 | DX: K64.4 Residual hemorrhoidal skin tags (principal); I10 Essential (primary) hypertension; E78.00 Pure hypercholesterolemia, unspecified; E11.40 Type 2 diabetes mellitus with diabetic neuropathy, unspecified; E66.9 Obesity, unspecified; Z79.82 Long term (current) use of aspirin; Z79.899 Other long term (current) drug therapy; Z79.84 Long term (current) use of oral hypoglycemic drugs; Z79.1 Long term (current) use of non-steroidal anti-inflammatories (NSAID); Z68.29 Body mass index [BMI] 29.0-29.9, adult | CPT/HCPCS: 99283; 99284 ==

== ENCOUNTER 2024-03-11 15:47 | Emergency (ER) | payer MEDICAID ==
[2024-03-11] MEDS ORDERED: Sodium Polystyrene Sulfonate 15 GM/60 ML Susp 60 ML Bot PO ONE (15:48)
[2024-03-11 17:41] LABS: BASOPHILS PERCENT AUTO 0.5 % (0.0-1.0); HEMATOCRIT 34.5 % (40.0-54.0); HEMOGLOBIN 10.8 g/dL (14.0-18.0); LYMPHOCYTES PERCENT AUTO 23.7 % (20.5-50.1); MEAN CORPUSCULAR HEMOGLOBIN 28.9 pg (27.0-34.0); MEAN CORPUSCULAR HGB CONC 31.3 g/dL (33.0-35.0); MEAN CORPUSCULAR VOLUME 92.2 fL (80-100); MONOCYTES PERCENT AUTO 9.4 % (2-8); NEUTROPHILS PERCENT AUTO 56.4 % (42.2-75.2); PLATELET COUNT,PLT 259 10^3/uL (150-450); RED BLOOD CELL COUNT 3.74 10^6/uL (4.6-6.2); WHITE BLOOD CELL COUNT,WBC 8.9 10^3/uL (5.0-10.0)
[2024-03-11 18:02] LABS: ALBUMIN 3.1 g/dL (3.4-5.0); BILIRUBIN TOTAL 0.2 mg/dL (0.2-1.0); BUN/CREATININE RATIO 16.8 (No establ ref range); CALCIUM 8.2 mg/dL (8.5-10.1); CREATININE 2.86 mg/dL (0.70-1.30); EST CRCL DRUG DOSING (CG) 32.83 mL/min; POTASSIUM,K 5.4 mmol/L (3.5-5.1); PROTEIN TOTAL,TP 7.5 g/dL (6.4-8.2)
[2024-03-11 18:06] LABS: ANION GAP 14.4 mEq/L (7-13)
[2024-03-11 18:07] LABS: A/G RATIO 0.7
[2024-03-11] MEDS: Sodium Polystyrene Sulfonate 15 GM/60 ML Susp 60 ML Bot PO ONE (18:33)
[2024-03-11] MEDS ORDERED: Sodium Polystyrene Sulfonate 15 GM/60 ML Susp 60 ML Bot ONE (18:35)
== END 2024-03-11 18:48 | disposition home or self-care (01) ==
LOC: DL.ED 15:47
DX: E86.0 Dehydration (principal); E87.5 Hyperkalemia; Z91.198 Patient's noncompliance with other medical treatment and regimen for other reason; I10 Essential (primary) hypertension; E78.00 Pure hypercholesterolemia, unspecified; E11.40 Type 2 diabetes mellitus with diabetic neuropathy, unspecified; E11.21 Type 2 diabetes mellitus with diabetic nephropathy; E66.9 Obesity, unspecified; F17.210 Nicotine dependence, cigarettes, uncomplicated; Z79.82 Long term (current) use of aspirin; Z79.899 Other long term (current) drug therapy; Z79.84 Long term (current) use of oral hypoglycemic drugs; Z68.31 Body mass index [BMI] 31.0-31.9, adult; Z99.2 Dependence on renal dialysis
CPT/HCPCS: 36415; 80053; 85025; 99283; 99284; A9270-GY